=== PATIENT | male | born 1925 | race African-American/Black ===

== ENCOUNTER 2016-04-12 16:27 | Inpatient (IN) | payer OTHER ==
[2016-04-12 17:31] LABS: MANUAL DIFF NEEDED? NO
[2016-04-12 17:36] LABS: BASO% 0.5 % (0.0-0.8); EOS# 0.33 X1000 (0.0-0.7); EOS% 5.4 % (0.0-10.0); HEMATOCRIT 37.9 % (42.0-52.0); HEMOGLOBIN 12.4 g/dL (14.0-18.0); LYMPH# 0.73 X1000 (1.2-3.4); LYMPH% 11.9 % (20.5-51.1); MCH 28.6 PG (27-31); MCHC 32.7 g/dL (33-37); MCV 87.5 FL (81-99); MONO# 0.56 X1000 (0.11-0.59); MONO% 9.2 % (1.7-9.3); MPV 9.8 FL (7.4-10.4); PLT 264 X1000 (130-400); RBC 4.33 XMIL (4.7-6.1)
[2016-04-12] MEDS ORDERED: NS 1,000 ML IV ONE (17:42)
[2016-04-12 17:46] LABS: INR 1.06; PROTIME 11.2 Seconds (9.2-11.7); PTT 27.2 Seconds (22.0-36.0)
[2016-04-12 17:56] LABS: ALLEN TEST YES; BE 4.9 mmoll (-3.0-3.0); BLOOD TYPE ARTERIAL; DRAW SITE R RADIAL; METHB 1.4 % (0.0-1.5); PCO2(98.6) 41 mmHg (35-45); PO2(98.6) 67 mmHg (60-100); SAMPLE BLOOD; SAO2 97.1 % (95.0-100.0); THB 11.4 g/dL (11.5-17.4); pH(98.6) 7.46 (7.35-7.45)
[2016-04-12 17:57] LABS: MODALITY ROOM AIR
[2016-04-12 17:58] LABS: ALBUMIN 3.1 g/dL (3.5-5.0); CALCIUM 9.3 mg/dL (8.8-10.2); MAGNESIUM 2.3 mg/dL (1.5-2.7); POTASSIUM 4.1 mmol/L (3.5-5.1); TOTAL BILIRUBIN 0.39 mg/dL (0.20-1.00); TOTAL PROTEIN 8.1 g/dL (6.3-8.3)
[2016-04-12] MEDS ORDERED: ROCEPHIN 1 GM/NS 50 ML IV ONE (19:53)
--- NOTE | 2016-04-12 20:11 | PROVIDER DOCUMENTATION ---
HPI-Respiratory General - General Source: patient - History of Present Illness-Resp Quality of Pain: reports: aching, dull Severity in ED: reports: severe Onset/Duration: reports: 4 days ago Timing: reports: still present Cough Quality/Degree: reports: moderate, productive cough, sputum Episode Frequency: frequent episodes Associated Symptoms: reports: chest pain/soreness, cough, shortness of breath, short of breath. denies: dizziness, fever/chills, heart racing, hurts to breathe, hyperventilating, lightheadedness, muscle/bodyaches, nasal congestion, sinus pain, sore throat, sweaty, wheezing <Michael Latham - Last Filed: 04/12/16 20:06> <Ty Mark - Last Filed: 04/12/16 20:20> - General Chief Complaint: Shortness of Breath Stated Complaint: SOB Time Seen by Provider: 04/12/16 16:37 Allergies/Adverse Reactions: Patient Allergies Allergy/AdvReac Type Severity Reaction Status Date / Time No Known Allergies Allergy Verified 04/12/16 17:02 Home Medications: Home Medication List Medication Instructions Recorded Confirmed Last Taken Type Albuterol 2.5MG/Ipratrop 0.5MG 3 ml INH [id number] 04/12/16 04/12/16 04/12/16 History [Duoneb] Cefuroxime Axetil [Cefuroxime] 250 mg PO BID 04/12/16 04/12/16 04/12/16 History Donepezil [Aricept] 5 mg PO QAM 04/12/16 04/12/16 04/12/16 History Quetiapine Fumarate 25 mg PO QHS 04/12/16 04/12/16 1 Day Ago History - History of Present Illness-Resp Nature of Presenting Problem: Pt is a 89 yom who presents to ER with CC of sob and a cough x4 days. 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 Pt's reports that today he looked at her, looked/ felt funny, and then collapsed and quit breathing. 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 (Michael Latham) Review of Systems - Adult - REVIEW OF SYSTEMS - ADULT Constitutional: denies: chills, fever, fatique, night sweats Eyes: reports: no symptoms reported Ears, Nose, Mouth & Throat: reports: no symptoms reported Cardiovascular: reports: chest pain, syncope. denies: edema, heart murmur, irregular heart rate, orthopnea, palpitations, poor circulation, PND Respiratory: reports: cough, excessive sputum production, shortness of breath. denies: chronic cough, dyspnea on exertion, hemoptysis, pleurisy, wheezing Gastrointestinal: reports: no symptoms reported Genitourinary: reports: no symptoms reported Musculoskeletal: reports: no symptoms reported Integumentary: reports: no symptoms reported Neurological: reports: loss of balance, paresthesia (from prior CVA), syncope. denies: ataxia, dizziness/vertigo, headache/migraines, numbness, seizure, slurred speech, tremors Psychiatric: reports: no symptoms reported Endocrine: reports: no symptoms reported Hematologic/Lymphatic: reports: no symptoms reported Allergic/Immunologic: reports: no symptoms reported All Other Systems: Reviewed and Negative <Michael Latham - Last Filed: 04/12/16 20:06> Past History - Adult - PAST MEDICAL HISTORY-ADULT Review of Records: reports: Nursing Assessment Review, Medications Reviewed Cardiovascular: reports: heart valve problem, hyperlipidemia Respiratory: reports: asthma, COPD Neurological: reports: CVA - PRIOR SURGERIES/PROCEDURES Surgical/Procedure History: reports: other (cardiac valve repair x2) - IMMUNIZATION STATUS Childhood Immunizations: See Nurse Assessment Flu Vaccine: See Nurse Assessment <Michael Latham - Last Filed: 04/12/16 20:06> Physical Exam-General - PHYSICAL EXAM-ADULT Initial Vital Signs Reviewed: Yes - CONSTITUTIONAL General Appearance: appears well, alert, moderate distress - RESPIRATORY Respiratory: chest non-tender, lungs clear, rhonchi (generalized). negative: normal breath sounds - CARDIOVASCULAR Cardiovascular: normal peripheral pulses, regular rate, rhythm. negative: bradycardia, tachycardia, irregularly irregular - LYMPHATIC Lymphatic: no adenopathy - NEUROLOGIC Neurologic: grossly normal, no motor/sensory deficits - PSYCHIATRIC Psych/Mental Status: normal mood/affect, normal thought content, normal thought process, oriented x 3 <Michael Latham - Last Filed: 04/12/16 20:06> Progress - XRAY 1 XRAY: Bilateral XRAY Study: Chest Impression: See EMR Report XRAY Interpretation: Negative - CT/MRI 1 CT Study: Head Impression: See EMR Report CT Results: Chronic microvascular changes, nothing acute. <Michael Latham - Last Filed: 04/12/16 20:06> - CONSULTS/PCP/HOSPITALIST Notification #1 *Consult/PCP/Hospitalist*: Hospitalist service Time Discussed: 20:20 Consult Disposition: Admit <Ty Mark - Last Filed: 04/12/16 20:20> - PLAN OF CARE/RESULTS Progress/Plan/Lab Results: Vital Signs - 24 hr 04/12/16 04/12/16 16:50 18:28 Temperature 97.9 F Pulse Rate 95 H 92 H Respiratory 22 20 Rate Blood Pressure 111/56 115/55 O2 Sat by Pulse 100 Oximetry Orders Category Date Time Status Cardiac Monitoring DIRECTED Care 04/12/16 16:38 Active Saline Loc NOW Care 04/12/16 16:38 Active CHEST-2 VIEWS [RAD] Stat Exams 04/12/16 16:38 Taken HEAD W/O CONTRAST [CT] Stat Exams 04/12/16 18:27 Taken LUNG SCAN / VQ [NM] Stat Exams 04/13/16 08:00 Ordered ABG [RESP] Routine Lab 04/12/16 17:47 Completed BLOOD CULTURE [BLDCUL] Stat Lab 04/12/16 17:10 Results CBC WITH ELECTRONIC DIFF [HEME] Stat Lab 04/12/16 17:10 Completed CK PROFILE [SP CHEM] Stat Lab 04/12/16 17:10 Completed CK PROFILE [SP CHEM] Stat Lab 04/12/16 19:11 Completed COMPREHENSIVE METABOLIC PANEL [CHEM] Stat Lab 04/12/16 17:10 Completed D-DIMER [CHEM] Stat Lab 04/12/16 17:10 Completed INFLUENZA SCREEN A/B Stat Lab 04/12/16 18:25 Completed LACTATE, PLASMA [CHEM] Stat Lab 04/12/16 17:10 Completed MAGNESIUM [CHEM] Stat Lab 04/12/16 17:10 Completed PRO B-NATRIURETIC PEPTIDE Stat Lab 04/12/16 17:10 Completed PROTIME WITH INR [COAG] Stat Lab 04/12/16 17:10 Completed PTT [COAG] Stat Lab 04/12/16 17:10 Completed TROPONIN T Stat Lab 04/12/16 17:10 Completed TROPONIN T Stat Lab 04/12/16 19:11 Completed 0.9% Sodium Chloride Inj [Ns] 1,000 ml Med 04/12/16 17:42 Discontinued IV 999 mls/hr CefTRIAXONE 1 GM/NS [Rocephin 1 gm/Ns] 50 ml Med 04/12/16 19:53 Active IV NOW EKG [EKG] Stat Ther 04/12/16 16:38 Ordered EKG [EKG] Stat Ther 04/12/16 18:37 Ordered Laboratory Tests 04/12/16 04/12/16 04/12/16 17:10 17:10 17:10 WBC 6.11 RBC 4.33 L Hgb 12.4 L Hct 37.9 L MCV 87.5 MCH 28.6 MCHC 32.7 L RDW Std Deviation 14.1 Plt Count 264 MPV 9.8 Immature Gran % (Auto) 0.0 Neut % (Auto) 73.0 Lymph % (Auto) 11.9 L Clayton % (Auto) 9.2 Eos % (Auto) 5.4 Baso % (Auto) 0.5 Immature Gran # (Auto) 0.00 Neut # (Auto) 4.46 Lymph # (Auto) 0.73 L Clayton # (Auto) 0.56 Eos # (Auto) 0.33 Baso # (Auto) 0.03 PT INR PTT (Actin FS) D-Dimer 5.18 H Specimen Type Sample Site pH pCO2 pO2 HCO3 Base Excess Oxyhemoglobin ABG O2 Sat (Calculated) ABG O2 Saturation ABG Carboxyhemoglobin ABG Methemoglobin Jay Test A-a O2 Difference Total Hemoglobin Lactate Blood Gas Modality FiO2 % Sodium 138 Potassium 4.1 Chloride 95 L Carbon Dioxide 29 Anion Gap 14 BUN 13 Creatinine 1.5 H Estimated GFR/1.73 m2 53 BUN/Creatinine Ratio 9 Glucose 133 H Calculated Osmolality 278 Calcium 9.3 Magnesium 2.3 Total Bilirubin 0.39 AST 20 ALT 13 Alkaline Phosphatase 55 Creatine Kinase 74 Troponin T Lju-V-Ylempqcwbtq Pept Total Protein 8.1 Albumin 3.1 L Globulin 5.0 Albumin/Globulin Ratio 0.6 Plasma Lactate 04/12/16 04/12/16 04/12/16 17:10 17:10 17:10 WBC RBC Hgb Hct MCV MCH MCHC RDW Std Deviation Plt Count MPV Immature Gran % (Auto) Neut % (Auto) Lymph % (Auto) Clayton % (Auto) Eos % (Auto) Baso % (Auto) Immature Gran # (Auto) Neut # (Auto) Lymph # (Auto) Clayton # (Auto) Eos # (Auto) Baso # (Auto) PT 11.2 INR 1.06 PTT (Actin FS) 27.2 D-Dimer Specimen Type Sample Site pH pCO2 pO2 HCO3 Base Excess Oxyhemoglobin ABG O2 Sat (Calculated) ABG O2 Saturation ABG Carboxyhemoglobin ABG Methemoglobin Jay Test A-a O2 Difference Total Hemoglobin Lactate Blood Gas Modality FiO2 % Sodium Potassium Chloride Carbon Dioxide Anion Gap BUN Creatinine Estimated GFR/1.73 m2 BUN/Creatinine Ratio Glucose Calculated Osmolality Calcium Magnesium Total Bilirubin AST ALT Alkaline Phosphatase Creatine Kinase Troponin T 0.046 Mxx-E-Mxpasytvzpo Pept 1704 H Total Protein Albumin Globulin Albumin/Globulin Ratio Plasma Lactate 04/12/16 04/12/16 04/12/16 17:10 17:47 19:11 WBC RBC Hgb Hct MCV MCH MCHC RDW Std Deviation Plt Count MPV Immature Gran % (Auto) Neut % (Auto) Lymph % (Auto) Clayton % (Auto) Eos % (Auto) Baso % (Auto) Immature Gran # (Auto) Neut # (Auto) Lymph # (Auto) Clayton # (Auto) Eos # (Auto) Baso # (Auto) PT INR PTT (Actin FS) D-Dimer Specimen Type ARTERIAL Sample Site R RADIAL pH 7.46 H pCO2 41 pO2 67 HCO3 28.7 H Base Excess 4.9 H Oxyhemoglobin 93.4 L ABG O2 Sat (Calculated) 15.0 ABG O2 Saturation 97.1 ABG Carboxyhemoglobin 2.50 ABG Methemoglobin 1.4 Jay Test YES A-a O2 Difference 31.0 Total Hemoglobin 11.4 L Lactate 1.60 Blood Gas Modality ROOM AIR FiO2 % 21.0 Sodium Potassium Chloride Carbon Dioxide Anion Gap BUN Creatinine Estimated GFR/1.73 m2 BUN/Creatinine Ratio Glucose Calculated Osmolality Calcium Magnesium Total Bilirubin AST ALT Alkaline Phosphatase Creatine Kinase 74 Troponin T Hhm-A-Hxfixnolnis Pept Total Protein Albumin Globulin Albumin/Globulin Ratio Plasma Lactate 4.1 H 04/12/16 19:11 WBC RBC Hgb Hct MCV MCH MCHC RDW Std Deviation Plt Count MPV Immature Gran % (Auto) Neut % (Auto) Lymph % (Auto) Clayton % (Auto) Eos % (Auto) Baso % (Auto) Immature Gran # (Auto) Neut # (Auto) Lymph # (Auto) Clayton # (Auto) Eos # (Auto) Baso # (Auto) PT INR PTT (Actin FS) D-Dimer Specimen Type Sample Site pH pCO2 pO2 HCO3 Base Excess Oxyhemoglobin ABG O2 Sat (Calculated) ABG O2 Saturation ABG Carboxyhemoglobin ABG Methemoglobin Jay Test A-a O2 Difference Total Hemoglobin Lactate Blood Gas Modality FiO2 % Sodium Potassium Chloride Carbon Dioxide Anion Gap BUN Creatinine Estimated GFR/1.73 m2 BUN/Creatinine Ratio Glucose Calculated Osmolality Calcium Magnesium Total Bilirubin AST ALT Alkaline Phosphatase Creatine Kinase Troponin T 0.034 Uzs-I-Zdptzbmzsji Pept Total Protein Albumin Globulin Albumin/Globulin Ratio Plasma Lactate (Michael Latham) Departure <Michael Latham - Last Filed: 04/12/16 20:06> - Departure Time of Disposition Order: 20:20 Certified Medical Emergency: Emergent <Ty Mark - Last Filed: 04/12/16 20:20> - Departure DIAGNOSIS: Failure of outpatient treatment, Syncope and collapse, New onset a-fib, Elevated d-dimer Disposition: ADMITTED INPATIENT 09 Condition: Stable Attestation - Scribe Verification/Attestation Scribe:: Michael Latham Acting as Scribe for:: Ty Mark Scribe documention review:: This chart was documented by a scribe and accurately reflects the service the provider performed and the decisions made by the provider. <Michael Latham - Last Filed: 04/12/16 20:06> - Physician/ JOSIAH Attestation Patient care was provided by Advanced Practice Provider:: Yes Advanced Practice Provider:: Ty Mark Advanced Practice Provider documentation review:: The Mid-level provider documentation, treatment plan and medical decision making was reviewed by the physician who agrees with all treatment and medical decision making by the MLP. <Ty Mark - Last Filed: 04/12/16 20:20> Physician Attestation
[2016-04-12] MEDS ORDERED: DUONEB (A & A) INH ONE (21:17)
[2016-04-12] MEDS ORDERED: MUCOMYST 20% INH ONE (21:18)
[2016-04-12] MEDS ORDERED: DOXYCYCLINE 100 MG in NS 250 ML IV SCH (21:30)
[2016-04-12] MEDS ORDERED: LOVENOX 1 MG/KG SUBQ ONE (21:37)
[2016-04-12] MEDS ORDERED: HEPARIN SUBQ ONE (21:39)
[2016-04-12 22:02] LABS: HEMOGLOBIN A1C 5.6 % (4.8-6.0)
[2016-04-12] MEDS: CARDIZEM PO SCH (22:55)
[2016-04-13] MEDS ORDERED: NS 1,000 ML IV SCH ×2 (00:28→18:30)
[2016-04-13] MEDS ORDERED: ZOFRAN IV PRN (00:28)
[2016-04-13] MEDS ORDERED: TYLENOL PO PRN (00:28)
--- NOTE | 2016-04-13 02:02 | EKG Report ---
Test Performed on : 04/13/2016 01:51:19 AM Test Reason : rhythm change Blood Pressure : / mmHG Vent. Rate : 103 BPM Atrial Rate : 103 BPM P-R Int : 144 ms QRS Dur : 110 ms QT Int : 368 ms P-R-T Axes : 073 -65 071 degrees QTc Int : 482 ms Sinus tachycardia. with premature supraventricular complexes. Left axis deviation Right bundle branch block Abnormal ECG When compared with ECG of 12-APR-2016 17:31, (Unconfirmed) Sinus rhythm. has replaced Atrial fibrillation. Nonspecific T wave abnormality no longer evident in Inferior leads Nonspecific T wave abnormality, improved in Lateral leads Confirmed by Karson Samayoa MD ([id number]) on 04/14/2016 9:02:07 PM
[2016-04-13] MEDS: CARDIZEM PO SCH ×4 (02:09→20:26)
[2016-04-13] MEDS: DUONEB (A & A) INH SCH ×6 (02:40→20:37)
--- NOTE | 2016-04-13 05:44 | EKG Report ---
Test Performed on : 04/12/2016 5:31:22 PM Test Reason : Chest Pain Blood Pressure : / mmHG Vent. Rate : 096 BPM Atrial Rate : 097 BPM P-R Int : 000 ms QRS Dur : 102 ms QT Int : 384 ms P-R-T Axes : 000 -73 -27 degrees QTc Int : 485 ms Atrial fibrillation. Incomplete right bundle branch block Left anterior fascicular block Nonspecific T wave abnormality Abnormal ECG When compared with ECG of 04-JUN-2015 19:21, Atrial fibrillation. has replaced Sinus rhythm. Nonspecific T wave abnormality now evident in Inferior leads Nonspecific T wave abnormality, worse in Lateral leads Unconfirmed Result
[2016-04-13 05:55] LABS: MANUAL DIFF NEEDED? NO
--- NOTE | 2016-04-13 05:56 | EKG Report ---
Test Performed on : 04/13/2016 05:47:56 AM Test Reason : afib Blood Pressure : / mmHG Vent. Rate : 095 BPM Atrial Rate : 095 BPM P-R Int : 148 ms QRS Dur : 106 ms QT Int : 408 ms P-R-T Axes : 064 -66 041 degrees QTc Int : 512 ms Sinus rhythm. with premature supraventricular complexes. and with occasional premature ventricular co mplexes. Left axis deviation Incomplete right bundle branch block Prolonged QT Abnormal ECG When compared with ECG of 13-APR-2016 01:51, (Unconfirmed) premature ventricular complexes. are now present Confirmed by Karson Samayoa MD ([id number]) on 04/14/2016 9:01:41 PM
[2016-04-13 06:04] LABS: BASO% 0.5 % (0.0-0.8); EOS# 0.43 X1000 (0.0-0.7); EOS% 6.6 % (0.0-10.0); HEMATOCRIT 33.7 % (42.0-52.0); HEMOGLOBIN 10.8 g/dL (14.0-18.0); IMM GRAN# 0.02 X1000 (0.0-0.04); IMM GRAN% 0.3 % (0.0-0.5); LYMPH# 1.27 X1000 (1.2-3.4); LYMPH% 19.6 % (20.5-51.1); MCH 28.1 PG (27-31); MCV 87.8 FL (81-99); MONO% 10.8 % (1.7-9.3); MPV 10.5 FL (7.4-10.4); NEUT% 62.2 % (42.2-75.2); PLT 232 X1000 (130-400); RBC 3.84 XMIL (4.7-6.1)
[2016-04-13 07:54] LABS: AGAP 10; BUN 10 mg/dL (8-22); CALCIUM 9.2 mg/dL (8.8-10.2); CHLORIDE 102 mmol/L (98-107); COSMO 274; POTASSIUM 4.2 mmol/L (3.5-5.1); SODIUM 137 mmol/L (136-145); TCO2 26 mmol/L (25-35)
--- NOTE | 2016-04-13 08:57 | Diag Imaging Result Document ---
PROCEDURE NAME: CHEST-2 VIEWS - 04/12/2016 CHEST, TWO VIEWS: INDICATION: Shortness of breath. COMPARISON: 06/04/2015. FINDINGS: The heart size is within normal limits. There are median sternotomy wires. There is stable eventration of the right hemidiaphragm. There is stable blunting of the left lateral costophrenic angle. There are healed right posterolateral rib fractures. The pulmonary vasculature is not congested. There may be some minimal atelectasis or infiltrate at the left lung base. IMPRESSION: 1. Possible minimal atelectasis or infiltrate at the left lung base. 2. Otherwise, no definite significant change from the prior studies.
[2016-04-13] MEDS: ARICEPT PO SCH (08:59)
[2016-04-13] MEDS: LOVENOX SUBQ SCH (08:59)
--- NOTE | 2016-04-13 09:00 | Diag Imaging Result Document ---
PROCEDURE NAME: HEAD W/O CONTRAST - 04/12/[address] SCAN OF THE BRAIN: INDICATION: Loss of consciousness. Preliminary interpretation was given by the on-call radiologist. FINDINGS: There is marked cerebral atrophy and deep white matter hypodensity consistent with microvascular disease. There is no evidence for acute infarct or hemorrhage. No midline shift or mass effect. The calvarium is intact. The paranasal sinuses and mastoid air cells are clear. IMPRESSION: 1. Marked cerebral atrophy and microvascular disease. 2. No acute intracranial abnormality is appreciated.
--- NOTE | 2016-04-13 09:02 | Diag Imaging Result Document ---
PROCEDURE NAME: CHEST-PORTABLE - 04/13/2016 CHEST, SINGLE VIEW: COMPARISON: 04/12/2016. FINDINGS: The cardiomediastinal silhouette is within normal limits. There are median sternotomy wires. The pulmonary vasculature is not congested. There are old right rib fractures. There is some minimal strandy density at the bases, compatible with atelectasis or infiltrate. IMPRESSION: Minimal bibasilar density, which may represent atelectasis.
[2016-04-13] MEDS: DOXYCYCLINE 100 MG in NS 250 ML IV SCH ×2 (09:30→20:31)
--- NOTE | 2016-04-13 09:43 | HISTORY AND PHYSICAL ---
REQUESTING PHYSICIAN: Kendall Mayers MD, hospitalist. CHIEF COMPLAINT: Shortness of breath. HISTORY OF PRESENT ILLNESS: This is an 89-year-old male with a history of dementia and previous CVA with left-sided paralysis. No family is at the bedside during my interview, however the ER provider apparently spoke to the and stated that she had him come into the ER because he "looked funny" and also "felt funny". He also had a period today where he collapsed and reportedly quit breathing. EMS reports having a difficult time getting the patient to become responsive, but he was responsive prior to arrival. A CT scan in the ER showed chronic microvascular changes, but no acute intracranial process. LABORATORY DATA: Showed a D-dimer of 5.18 and a BUN of 13 with a creatinine of 1.5. The patient appears to have a baseline creatinine of 0.9. At this time a CTA will not be obtained to rule out pulmonary embolism related to the creatinine being elevated. IMAGING: The patient will be admitted to [facility] related to the EKG done in the ER showing apparent new onset atrial fibrillation. PAST MEDICAL HISTORY: Per ER charting shows: 1. Asthma. 2. COPD. 3. Previous CVA with left-sided paralysis. 4. Hyperlipidemia. 5. Coronary artery disease with cardiac valve repair x2. PREVIOUS SURGICAL HISTORY: Cardiac valve repair x2. This was also obtained by ER charting. The patient could not provide any additional surgical interventions. SOCIAL HISTORY: He reportedly lives at home with his . He states that he did smoke years ago, but has since stopped. He uses no alcohol or illicit drugs. FAMILY HISTORY: This could not be obtained related to the patient's mentation. ALLERGIES: No known drug allergies. HOME MEDICATIONS: 1. Cefotaxime 250 mg p.o. b.i.d. 2. DuoNebs 3 mL inhalation 4 times daily. 3. Quetiapine fumarate 25 mg p.o. at bedtime. 4. Aricept 5 mg p.o. q.a.m. REVIEW OF SYSTEMS: Fourteen point review of systems conducted with the patient: He was tearful during the interview. States that he does not feel well, however he could not expand on this. He denied any chest pain, nausea, vomiting, dizziness, shortness of breath, diarrhea. Again the patient is disoriented related to his dementia and previous CVA, so pertinent positives are listed above in the HPI. PHYSICAL EXAMINATION: VITAL SIGNS: Temperature 97.9 degrees, pulse 92, respirations 20, blood pressure 130/80, oxygen saturation 97% on room air. GENERAL: This is a demented 89-year-old, female, in no acute distress lying on the ER stretcher. HEENT: Head is atraumatic, normocephalic. Pupils equal, round, react to light. Extraocular eye movement intact. Sclerae is anicteric. Conjunctivae is pink. Oral mucosa is dry. NECK: Supple. No JVD. No thyromegaly. Trachea is midline. CARDIAC: Irregularly irregular. S1, S2 appreciated. No murmurs, gallops, rubs. Atrial fibrillation on monitor. LUNGS: Rhonchi noted. Bilateral lung whelan clear somewhat with cough. No expiratory wheezes. No rales. Symmetrical rise and fall with respirations. ABDOMEN: Soft, nondistended, nontender. Bowel sounds present in all 4 quadrants. Normoactive. No pulsatile mass. No organomegaly. MUSCULOSKELETAL: Left side is flaccid. Right upper arm has noted contractures. Right upper and lower extremity 4/5 strength with normal range of motion. EXTREMITIES: No clubbing, cyanosis, or edema. Bilateral lower extremities with diminished pedal pulses bilaterally. SKIN: Warm, dry and intact. No acute lesions or rash. GENITOURINARY: No bladder distention. Yusuf catheter will be placed for intake/output. DIAGNOSTIC DATA: CT of the head showed chronic microvascular changes, however no acute intracranial process. Chest x-ray showed chronic COPD changes, but no acute disease. LABORATORY DATA: WBC is 6.11, hemoglobin is 12.4, hematocrit 37.9, platelet count 264. Coagulation within normal limits. D-dimer 5.18. ABG: A pH 7.46, pCO2 41, PO2 61, bicarbonate 28.7. Sodium 138, potassium 4.1, chloride 95, carbon dioxide 29, BUN 13, creatinine 1.5, glucose 133. ProBNP 1704, plasma lactate is 4.1. ASSESSMENT AND PLAN: 1. New onset atrial fibrillation. The patient at this time is rate controlled in the upper 90s. Will start on Cardizem 30 mg p.o. q. 6 hours and increase as needed. Echocardiogram in morning. The patient was given a 1 time dose of anticoagulant, but related to elevated D- dimer. Ventilation perfusion scan will be obtained in the morning. 2. Acute kidney injury. Normal saline bolus was given in the emergency room. We will continue gentle fluid hydration at 75 mL an hour of normal saline. 3. Elevated D-dimer. Rule out pulmonary embolism. We will give Lovenox 1 mg/kg and order ventilation perfusion scan for morning. 4. Chronic dementia, aware. Continue patient's Aricept, Seroquel. 5. History of cerebrovascular accident with left-sided paralysis, aware. 6. Bronchitis with failed outpatient treatment. We will start on doxycycline 100 mg intravenous every 12 hours. Will give a 1 time DuoNeb and Mucomyst 20% inhalation in the emergency room, and then continue with DuoNebs every 6 hours. Blood cultures are pending. 7. Hyperglycemia. The patient does not carry a diagnosis of diabetes mellitus, however his blood glucose was elevated. We will check hemoglobin A1c. Further recommendations per patient clinical course. Dictated by ALEXANDR Connell for Kendall Mayers MD
--- NOTE | 2016-04-13 13:20 | Diag Imaging Result Document ---
PROCEDURE NAME: LUNG SCAN / VQ - 04/13/2016 VENTILATION-PERFUSION LUNG SCAN: FINDINGS: The patient was administered 39.6 millicuries of technetium-99m DTPA aerosol for the ventilation portion of the study and 5.6 millicuries of technetium 99m MAA intravenously for the perfusion portion of the study. There is no evidence of ventilation-perfusion mismatch. No absolute segmental perfusion defects are present. IMPRESSION: Low probability for pulmonary embolus.
--- NOTE | 2016-04-13 19:03 | PROGRESS NOTE ---
DATE: 04/13/2016 SUBJECTIVE: The patient has no complaints. He does have episodes of confusion and agitation where he yells out to the staff. He appears in no distress. OBJECTIVE: Vital Signs: Blood pressure is 141/77 with a heart rate of 83, respirations are 21, temperature is 97.8 degrees, with oxygen saturations of 94 to 95% on 2 L nasal cannula. Cardiovascular: Irregularly irregular rate and rhythm. S1 and S2 appreciated. Atrial fibrillation is noted. Pulmonary: He has some rhonchi that somewhat clear to cough with no increased work of breathing noted. Symmetrical rise and fall with respirations. Gastrointestinal: Abdomen is soft, nontender, nondistended. Bowel sounds in all 4 quadrants. Musculoskeletal: Left side is flaccid. Right upper arm has contractures. Extremities: No clubbing, cyanosis, or edema. Palpable pulses x4. ASSESSMENT AND PLAN: 1. New onset atrial fibrillation. The patient will continue on telemetry. We will continue his Cardizem at 30 mg q.6 hours. Echocardiogram was attempted although it could not be obtained due to the patient's anatomy and contractures of his arm which is rigid and stuck in the apical windows. Therefore, pictures were unable to be taken. We will discuss with cardiology. V/Q lung scan revealed low probability for pulmonary embolus. 2. Acute kidney injury. Creatinine was 1.5 on admission. It has decreased to 1.3. We will continue to gently hydrate and trend labs. We will renal dose any medications. 3. Elevated D-dimer. As stated above V/Q lung scan was negative for pulmonary embolism. Therefore, we will use no further anticoagulation. 4. Chronic dementia. We will continue his home medications. 5. History of cerebrovascular accident with left-sided paralysis. Noted. 6. Bronchitis with failed outpatient treatment. We will continue with antibiotics, DuoNeb. Blood cultures are pending. 7. Hyperglycemia. The patient's A1c was 5.6. We will trend. Dictated by ALEXANDR Bustillos for Joaquin Juares MD
[2016-04-13] MEDS: SEROQUEL PO SCH (20:26)
[2016-04-14] MEDS: CARDIZEM PO SCH ×5 (02:20→21:57)
[2016-04-14] MEDS: DUONEB (A & A) INH SCH ×3 (03:22→15:04)
[2016-04-14 05:48] LABS: HEMATOCRIT 33.8 % (42.0-52.0); HEMOGLOBIN 10.7 g/dL (14.0-18.0); MCH 27.9 PG (27-31); MCHC 31.7 g/dL (33-37); MCV 88.3 FL (81-99); RBC 3.83 XMIL (4.7-6.1)
[2016-04-14 06:12] LABS: AGAP 9; ALBUMIN 2.9 g/dL (3.5-5.0); ALKALINE PHOSPHATASE 49 U/L (32-122); BUN 7 mg/dL (8-22); CALCIUM 8.7 mg/dL (8.8-10.2); CHLORIDE 105 mmol/L (98-107); COSMO 273; GOT 16 U/L (10-34); GPT 9 U/L (10-44); POTASSIUM 3.3 mmol/L (3.5-5.1); SODIUM 138 mmol/L (136-145); TCO2 25 mmol/L (25-35); TOTAL PROTEIN 6.6 g/dL (6.3-8.3)
--- NOTE | 2016-04-14 07:03 | Extremity Venous Study ---
PROCEDURE NAME: Venous U/S Bilateral Legs - 04/13/2016 BILATERAL VENOUS FLOW EVALUATION: INDICATION: Elevated D-dimer. FINDINGS: The deep veins of the lower extremities bilaterally demonstrate appropriate compressibility and augmentation. No intraluminal thrombus is visualized. There is no evidence for DVT. Superficial veins are patent. IMPRESSION: No evidence for deep venous thrombosis bilateral lower extremities.
[2016-04-14] MEDS: NS 1,000 ML IV SCH ×2 (07:52→21:56)
[2016-04-14] MEDS: LOVENOX SUBQ SCH (10:17)
[2016-04-14] MEDS: ARICEPT PO SCH ×2 (10:18→13:22)
[2016-04-14] MEDS: KLOR-CON PO ONE ×2 (10:18→10:39)
[2016-04-14] MEDS: DOXYCYCLINE PO SCH ×2 (10:40→21:57)
--- NOTE | 2016-04-14 10:40 | PROGRESS NOTE ---
DATE: 04/14/2016 SUBJECTIVE: Patient without any new complaints today. He is nonverbal. No family. OBJECTIVE: Vital Signs: On physical, temp 98.0 degrees, pulse 73, respiratory 18, BP 147/61, sat 97% on 2 L. General: Patient is a frail-appearing elderly male, who is currently in no real respiratory distress. CV: Regular rhythm, rate controlled. Chest: Positive rhonchi. No wheezing, otherwise clear. Abdomen: Soft. Extremities: No edema. He has decreased pulses bilaterally in his lower extremities. He is frail with some contractures noted to his left upper extremity. IMAGING: Lower extremity Doppler negative for DVT. ASSESSMENT: 1. Atrial fibrillation with rapid ventricular response, currently rate controlled on oral Cardizem. 2. Anemia of chronic disease, stable. 3. Hypokalemia. Will replace. 4. Acute kidney injury. Creatinine was 1.5, currently 0.9; this has resolved. 5. Chronic dementia. Continue Aricept, Seroquel. 6. History of cerebrovascular accident with left-sided paralysis. 7. Moderate protein calorie malnutrition. PLAN: We will continue patient on doxycycline. Will saline lock. Will get physical therapy involved. Certainly may need rehab upon discharge. We will replace his potassium. Further orders as needed.
[2016-04-14] MEDS: SEROQUEL PO SCH (21:57)
[2016-04-15] MEDS: CARDIZEM PO SCH ×4 (04:14→20:12)
[2016-04-15] MEDS: DUONEB (A & A) INH SCH ×4 (04:28→22:45)
[2016-04-15 07:01] LABS: HEMATOCRIT 36.4 % (42.0-52.0); HEMOGLOBIN 11.6 g/dL (14.0-18.0); MCH 28.1 PG (27-31); MCHC 31.9 g/dL (33-37); MCV 88.1 FL (81-99); MPV 9.9 FL (7.4-10.4); RBC 4.13 XMIL (4.7-6.1)
[2016-04-15 07:24] LABS: AGAP 13; ALBUMIN 3.4 g/dL (3.5-5.0); ALKALINE PHOSPHATASE 54 U/L (32-122); BUN 8 mg/dL (8-22); CALCIUM 9.3 mg/dL (8.8-10.2); CHLORIDE 102 mmol/L (98-107); COSMO 276; GOT 18 U/L (10-34); GPT 10 U/L (10-44); POTASSIUM 3.6 mmol/L (3.5-5.1); SODIUM 140 mmol/L (136-145); TCO2 25 mmol/L (25-35); TOTAL PROTEIN 7.4 g/dL (6.3-8.3)
[2016-04-15] MEDS: LOVENOX SUBQ SCH (07:48)
--- NOTE | 2016-04-15 09:07 | PROGRESS NOTE ---
DATE: 04/15/2016 SUBJECTIVE: The patient is nonverbal. No changes. No family is noted. The staff denies any current concerns. OBJECTIVE: Vital Signs: Temperature 97.0 degrees, pulse 87, respiratory 18, BP 150/67 to 170/70, satting 95% on 2 L. General: Patient is a frail-appearing, male with notable muscle contractures in his left upper extremity. He does not follow commands. Does not answer questions. Does not verbalize complaints. HEENT: Normocephalic. Neck: Supple. CV: Regular rate. Chest: Relatively clear. Positive upper airway noise. Faint occasional wheezing this a.m. Abdomen: Soft. Extremities: Notable for muscle contractures in his left upper extremity. LABS: CBC normal. CMP pending. ASSESSMENT: 1. Hypokalemia. 2. New onset atrial fibrillation, appears rate controlled. 3. Hypocalcemia. 4. Moderate protein calorie malnutrition. 5. Acute kidney injury, appears resolved on yesterday's lab. 6. Elevated D-dimer, likely chronic. Negative ventilation perfusion scan. Negative lower extremity ultrasound. 7. Bronchitis. Continues to improve slowly. PLAN: We will begin looking for disposition planning with Mr. Pitt. Will saline lock. He is not eating or drinking to any degree. We will attempt to discuss with the family DNR, comfort care. We will decrease his Lovenox to prophylactic dose as it does not appear as though he has had a DVT. Further orders as needed.
[2016-04-15] MEDS: ARICEPT PO SCH (09:12)
[2016-04-15] MEDS: DOXYCYCLINE PO SCH ×2 (09:12→20:12)
[2016-04-15] MEDS ORDERED: DUONEB (A & A) INH PRN (15:00)
[2016-04-15] MEDS: SEROQUEL PO SCH (20:13)
[2016-04-16] MEDS: CARDIZEM PO SCH ×4 (02:03→20:40)
[2016-04-16] MEDS: DUONEB (A & A) INH SCH ×6 (02:39→23:01)
[2016-04-16] MEDS: LOVENOX SUBQ SCH (06:47)
--- NOTE | 2016-04-16 08:28 | PROGRESS NOTE ---
DATE: 04/16/2016 SUBJECTIVE: Patient without complaints. He does not answer questions or follow commands. However, he was noted to talk to his family when they arrived yesterday. PHYSICAL: Vital Signs: Temperature 97, pulse 95, respiratory 18, BP 128/49. General: Patient is a well developed, frail-appearing male who is currently in no respiratory distress. HEENT: Normocephalic. Neck: Supple. CV: Regular rate. Chest: Relatively clear. Positive rhonchi. Abdomen: Soft. Extremities: No edema. He is noted to have contractures of the left upper extremity. DIAGNOSTIC DATA: Labs pending. Chest x-ray pending. ASSESSMENT: 1. New onset atrial fibrillation. Currently rate controlled. 2. Acute kidney injury. Creatinine is resolved, currently back to 0.8. 3. Hypokalemia, resolved. 4. Moderate protein calorie malnutrition. 5. Hypocalcemia. 6. Acute bronchitis. PLAN: Hopefully can discharge home in the next day or 2. We will ask Instructional Design Manager to assist in discharge planning.
[2016-04-16] MEDS: ARICEPT PO SCH (08:55)
[2016-04-16] MEDS: DOXYCYCLINE PO SCH ×2 (08:55→20:40)
[2016-04-16] MEDS: SEROQUEL PO SCH ×2 (20:40→23:04)
[2016-04-17] MEDS: DUONEB (A & A) INH SCH ×6 (02:54→23:13)
[2016-04-17] MEDS: CARDIZEM PO SCH ×4 (03:43→20:23)
[2016-04-17] MEDS: LOVENOX SUBQ SCH (06:23)
[2016-04-17] MEDS: PRINIVIL PO SCH (08:20)
[2016-04-17] MEDS: ARICEPT PO SCH (08:20)
[2016-04-17] MEDS: DOXYCYCLINE PO SCH ×2 (08:20→20:23)
--- NOTE | 2016-04-17 09:48 | PROGRESS NOTE ---
DATE: 04/17/2016 SUBJECTIVE: The patient is without new complaints. No family member is around. OBJECTIVE: Vital Signs: On physical, temp 97.0 degrees, pulse 84, respiratory rate 18 and BP 164/84. General: Patient is well developed, well nourished. Currently in no respiratory distress. HEENT: Normocephalic. Neck: Supple. CV: Regular rate. Chest: Clear. Abdomen: Soft. Extremities: He was noted to have muscle contractures left upper extremity. ASSESSMENT: 1. Hypertension. Blood pressure remains elevated. We will add lisinopril 5 mg. 2. Atrial fibrillation, stable. Continue Cardizem 30 mg every 6 hours. 3. Acute bronchitis. Will continue doxycycline and albuterol. 4. Dementia. Continue Aricept. 5. History of cerebrovascular accident with left-sided paralysis. PLAN: Overall patient has improved and can be discharged home when services are available at home. Certainly would prefer him to go to rehab, but that does not appear to be an option per the family. Will continue to follow. Hopefully, home in the next 2-3 days.
[2016-04-17] MEDS: SEROQUEL PO SCH (20:24)
[2016-04-18] MEDS: CARDIZEM PO SCH ×4 (02:34→20:31)
[2016-04-18] MEDS: DUONEB (A & A) INH SCH ×6 (03:19→23:10)
[2016-04-18] MEDS: LOVENOX SUBQ SCH (06:20)
[2016-04-18] MEDS: ARICEPT PO SCH (08:58)
[2016-04-18] MEDS: DOXYCYCLINE PO SCH ×2 (08:58→20:31)
[2016-04-18] MEDS: PRINIVIL PO SCH (08:58)
--- NOTE | 2016-04-18 11:47 | PROGRESS NOTE ---
DATE: 04/18/2016 SUBJECTIVE: Patient without new complaints. No family is in the room. OBJECTIVE: Vital Signs: Reviewed. Temperature 97.4 degrees, pulse 94, respiratory 18, BP 106/48. General: Patient is a well-developed, elderly male who is in no current respiratory distress. He is awake. CV: Regular rate. Chest: Relatively clear. Positive rhonchi throughout. Abdomen: Soft. Extremities: Notable contractures left upper extremity. ASSESSMENT: 1. Hypertension. 2. Atrial fibrillation, stable. 3. Acute bronchitis. 4. Chronic dementia. 5. History of cerebrovascular accident with left-sided paralysis. PLAN: Overall patient is better. He is currently on oral medications. We will discuss with vp digital marketing social media and crm for discharge planning. His blood pressure was elevated for the past few days. We started him on 5 mg of lisinopril and blood pressures appear to be better.
[2016-04-18] MEDS: SEROQUEL PO SCH (20:31)
[2016-04-19] MEDS: CARDIZEM PO SCH ×3 (02:44→16:13)
[2016-04-19] MEDS: DUONEB (A & A) INH SCH ×4 (03:13→15:49)
[2016-04-19] MEDS: LOVENOX SUBQ SCH (06:10)
[2016-04-19 07:21] LABS: HEMATOCRIT 38.3 % (42.0-52.0); HEMOGLOBIN 11.9 g/dL (14.0-18.0); MCH 28.1 PG (27-31); MCHC 31.1 g/dL (33-37); MCV 90.5 FL (81-99); MPV 9.7 FL (7.4-10.4); RBC 4.23 XMIL (4.7-6.1)
[2016-04-19 07:34] LABS: AGAP 7; ALBUMIN 3.4 g/dL (3.5-5.0); ALKALINE PHOSPHATASE 47 U/L (32-122); BUN 17 mg/dL (8-22); CALCIUM 9.8 mg/dL (8.8-10.2); CHLORIDE 100 mmol/L (98-107); COSMO 278; GOT 38 U/L (10-34); GPT 26 U/L (10-44); POTASSIUM 4.1 mmol/L (3.5-5.1); SODIUM 138 mmol/L (136-145); TCO2 31 mmol/L (25-35); TOTAL PROTEIN 7.7 g/dL (6.3-8.3)
--- NOTE | 2016-04-19 07:45 | PROGRESS NOTE ---
DATE: 04/19/2016 SUBJECTIVE: Patient without any new complaints. PHYSICAL EXAMINATION: Vital Signs: Reviewed. Temperature 97 degrees, pulse 92, respiratory rate 18, BP 114/59, saturation 95% on 2 L. General: Patient well developed, frail-appearing male who is currently in no respiratory distress. Appears in stable home condition. Neck: Neck supple. CV: Regular rate. Chest: Relatively clear. Positive rhonchi. Abdomen: Soft. Extremities: Moves all extremities. Neurologic: No changes. ASSESSMENT: 1. Hypertension better with the addition of lisinopril 5 mg. 2. Anemia of chronic disease, stable. 3. Hypokalemia resolved. 4. New onset atrial fibrillation, stable on Cardizem 30 q.6. 5. Chronic dementia. 6. History of cerebrovascular accident. 7. Bronchitis improved. PLAN: Hopefully patient will discharge home later this afternoon. The family has been recalcitrant to him going to rehab. Will ask social insurance specialist for assistance on DC planning.
[2016-04-19] MEDS: ARICEPT PO SCH (08:50)
[2016-04-19] MEDS: PRINIVIL PO SCH (08:50)
[2016-04-19] MEDS: DOXYCYCLINE PO SCH (08:50)
--- NOTE | 2016-04-19 15:29 | DISCHARGE SUMMARY ---
ADMISSION DATE: 04/12/2016 DISCHARGE DATE: 04/19/2016 ADMISSION DIAGNOSES: 1. New onset atrial fibrillation. 2. Acute kidney injury. 3. Elevated D-dimer. 4. Chronic dementia. 5. History of cerebrovascular accident with left-sided paralysis. 6. Bronchitis with failed outpatient treatment. 7. Hyperglycemia. DISCHARGE DIAGNOSES: 1. New onset atrial fibrillation. Currently rate controlled. 2. Hypertension. 3. Bronchitis with failed outpatient treatment, improved. 4. Chronic dementia. 5. History of cerebrovascular accident. 6. Anemia of chronic disease. SUMMARY OF FINDINGS: This is an 89-year-old male who presented to the ER via EMS after having a difficult time being responsive at home. The stated that he "looked funny and felt funny". CT scan showed chronic microvascular changes, but no acute intracranial process. He had a D-dimer of 5.18 with a BUN of 13 and a creatinine of 1.5. His baseline creatinine was 0.9. While in the ER, his EKG showed an apparent new onset atrial fibrillation at 96. V/Q scan on 04/13/2016 showed low probability for pulmonary emboli. Extremity venous study showed no evidence of a DVT in the bilateral lower extremities. He was placed on IV antibiotics, Lovenox 30 mg subcutaneous q.24 for DVT prophylaxis, DuoNeb q.4 hours and q.2 p.r.n. He has remained afebrile for greater than 24 hours. He was noted to have an elevation in his blood pressure of 176/89. He was started on lisinopril 5 mg p.o. daily. Blood pressures have improved. Today he is 110/72. So it is felt that he can safely be discharged to rehab today. DISCHARGE MEDICATIONS: He will be on Cardizem CD 120 mg p.o. daily, doxycycline 100 mg p.o. b.i.d. for 7 days, lisinopril 5 mg p.o. daily, DuoNebs 4 times a day for 7 days, Aricept 5 mg p.o. q.a.m., and quetiapine 25 mg p.o. at bedtime, aspirin 81 mg p.o. daily. FOLLOWUP: He will follow back up with his primary care physician once discharged from rehab. TIME SPENT: 35 minutes. Dictated by ALEXANDR Pepper for Joaquin Juares MD
[2016-04-19 15:57] VITALS: BP 129/89
== END 2016-04-19 17:41 | DRG 191 ==
LOC: ED 16:27 → P.ICU 22:27 → P.MEDSURG 04-14 06:14
PROVIDERS: ATTEND Family Medicine
DX: J44.0 Chronic obstructive pulmonary disease with (acute) lower respiratory infection (principal); N17.9 Acute kidney failure, unspecified; E44.0 Moderate protein-calorie malnutrition; I69.954 Hemiplegia and hemiparesis following unspecified cerebrovascular disease affecting left non-dominant side; Z68.1 Body mass index [BMI] 19.9 or less, adult; I48.91 Unspecified atrial fibrillation; E83.51 Hypocalcemia; F03.90 Unspecified dementia, unspecified severity, without behavioral disturbance, psychotic disturbance, mood disturbance, and anxiety; D63.8 Anemia in other chronic diseases classified elsewhere; J20.9 Acute bronchitis, unspecified; E87.6 Hypokalemia; J45.909 Unspecified asthma, uncomplicated; I25.10 Atherosclerotic heart disease of native coronary artery without angina pectoris; R73.9 Hyperglycemia, unspecified; E78.5 Hyperlipidemia, unspecified; Z79.899 Other long term (current) drug therapy; Z87.891 Personal history of nicotine dependence
CPT/HCPCS: 36415; 51702; 70450; 71010; 71020; 78582; 80048; 80053; 82550; 82805; 83036; 83605; 83735; 83880; 84443; 84484; 85025; 85027; 85379; 85610; 85730; 87040; 87804; 93005; 93970; 94640; 94667; 94761; 96374; A9539; A9540; J0696; J1650; J7030; J7050

== ENCOUNTER 2016-05-12 15:00 | Emergency (ER) | payer OTHER ==
--- NOTE | 2016-05-12 15:17 | PROVIDER DOCUMENTATION ---
HPI-Respiratory General - General Stated Complaint: RESP DISTRESS Time Seen by Provider: 05/12/16 15:10 Source: patient, EMS Allergies/Adverse Reactions: Patient Allergies Allergy/AdvReac Type Severity Reaction Status Date / Time No Known Allergies Allergy Verified 05/12/16 15:14 Home Medications: Home Medication List Medication Instructions Recorded Confirmed Last Taken Type Albuterol 2.5MG/Ipratrop 0.5MG 3 ml INH [id number] 04/12/16 05/12/16 05/12/16 History [Duoneb (A & A)] Diltiazem HCl [Diltiazem ER] 120 mg PO DAILY 05/12/16 05/12/16 05/12/16 History Donepezil [Aricept] 5 mg PO QAM 05/12/16 05/12/16 05/12/16 History Doxycycline 100 mg PO BID #20 capsule 05/12/16 Unknown Rx Lisinopril 5 mg PO DAILY 05/12/16 05/12/16 05/12/16 History Methylprednisolone [Medrol Dosepak] 4 mg PO DIRECTED #1 package 05/12/16 Unknown Rx Quetiapine [Seroquel] 25 mg PO HS 05/12/16 05/12/16 05/12/16 History - History of Present Illness-Resp Nature of Presenting Problem: Pt is an 89 yom who came to the ED with a cc of respiratory distress. Pt reports he has been sick for the past month at a rehab facility for COPD. Pt got home a few days ago and is on oxygen at home at night. Pt is required to do breathing treatments every four hours but reports he hasn't done any today. Pt is in mild distress and SOB. Quality of Pain: reports: none Severity in ED: reports: mild Onset/Duration: reports: just prior to arrival Timing: reports: still present Current Respiratory Medication Therapy: Initiated see nurses note Associated Symptoms: reports: shortness of breath, wheezing Similar Symptoms Previously?: No Recently seen or treated by another doctor?: No Review of Systems - Adult - REVIEW OF SYSTEMS - ADULT Constitutional: denies: chills, fever Eyes: reports: no symptoms reported Ears, Nose, Mouth & Throat: denies: sinus problem, mouth/dental pain Cardiovascular: reports: no symptoms reported Respiratory: reports: shortness of breath, wheezing. denies: cough, hemoptysis Gastrointestinal: denies: abdominal pain, diarrhea, nausea, vomiting Genitourinary: reports: no symptoms reported Musculoskeletal: reports: no symptoms reported Integumentary: reports: no symptoms reported Neurological: reports: no symptoms reported Psychiatric: reports: no symptoms reported Endocrine: reports: no symptoms reported Hematologic/Lymphatic: reports: no symptoms reported Allergic/Immunologic: reports: no symptoms reported All Other Systems: Reviewed and Negative Past History - Adult - PAST MEDICAL HISTORY-ADULT Review of Records: reports: Old Records Reviewed, Nursing Assessment Review Major Childhood Illnesses: reports: denies history Cardiovascular: reports: heart valve problem, hyperlipidemia Respiratory: reports: asthma, COPD Gastrointestinal: reports: denies history Obstetrical/Gynecological: reports: denies history Genitourinary: reports: denies history Musculoskeletal: reports: denies history Neurological: reports: CVA, dementia Endocrine/Immune: reports: denies history Other Conditions: reports: denies history - PRIOR SURGERIES/PROCEDURES Surgical/Procedure History: reports: other (cardiac valve repair x2) - IMMUNIZATION STATUS Childhood Immunizations: See Nurse Assessment Flu Vaccine: See Nurse Assessment - FAMILY HISTORY Family History: reviewed, not pertinent Physical Exam-General - PHYSICAL EXAM-ADULT Initial Vital Signs Reviewed: Yes - CONSTITUTIONAL General Appearance: mild distress, thin, other (ill apearance) - EYES Eyes: PERRL/EOMI, pink conjunctivae - HEAD, EARS, NOSE, MOUTH & THROAT HENMT: normocephalic/atraumatic, moist mucous membranes - NECK Neck: non-tender - RESPIRATORY Respiratory: decreased breath sounds, rales, wheezing - CARDIOVASCULAR Cardiovascular: tachycardia - GASTROINTESTINAL (ABDOMEN) Abdominal Exam: normal bowel sounds - MUSCULOSKELETAL Back Exam: normal inspection Extremity: no pedal edema, other (LUE contracted; paralyzed on left side of body ) - SKIN Integumentary: normal color - NEUROLOGIC Neurologic: grossly normal - PSYCHIATRIC Psych/Mental Status: normal mood/affect, normal thought content, normal thought process, oriented x 3 Progress - PLAN OF CARE/RESULTS Progress/Plan/Lab Results: Vital Signs - 24 hr 05/12/16 15:08 Pulse Rate 75 Respiratory 19 Rate Blood Pressure 142/53 O2 Sat by Pulse 92 L Oximetry Orders Category Date Time Status EKG [EKG] Stat Ther 05/12/16 15:03 Ordered Laboratory Tests 05/12/16 05/12/16 05/12/16 16:07 16:07 16:07 WBC 6.77 RBC 4.30 L Hgb 12.1 L Hct 38.1 L MCV 88.6 MCH 28.1 MCHC 31.8 L RDW Std Deviation 14.5 Plt Count 252 MPV 9.6 Neut % (Auto) 69.8 Lymph % (Auto) 15.4 L [place] % (Auto) 6.4 Eos % (Auto) 8.1 Baso % (Auto) 0.3 Neut # (Auto) 4.73 Lymph # (Auto) 1.04 L [place] # (Auto) 0.43 Eos # (Auto) 0.55 Baso # (Auto) 0.02 Specimen Type Sample Site pH pCO2 pO2 HCO3 Base Excess Oxyhemoglobin ABG O2 Sat (Calculated) ABG O2 Saturation ABG Carboxyhemoglobin ABG Methemoglobin Jay Test A-a O2 Difference Total Hemoglobin Lactate Blood Gas Modality FiO2 % Sodium 135 L Potassium 3.8 Chloride 98 Carbon Dioxide 28 Anion Gap 9 BUN 14 Creatinine 1.0 Estimated GFR/1.73 m2 > 60 BUN/Creatinine Ratio 14 Glucose 118 H Calculated Osmolality 272 Calcium 8.9 Total Bilirubin 0.60 AST 14 ALT 12 Alkaline Phosphatase 65 [id number] Pept 183 Total Protein 7.6 Albumin 3.4 L Globulin 4.2 Albumin/Globulin Ratio 0.8 05/12/16 16:45 WBC RBC Hgb Hct MCV MCH MCHC RDW Std Deviation Plt Count MPV Neut % (Auto) Lymph % (Auto) [place] % (Auto) Eos % (Auto) Baso % (Auto) Neut # (Auto) Lymph # (Auto) [place] # (Auto) Eos # (Auto) Baso # (Auto) Specimen Type ARTERIAL Sample Site R RADIAL pH 7.44 pCO2 39 pO2 71 HCO3 26.6 H Base Excess 2.2 Oxyhemoglobin 94.0 L ABG O2 Sat (Calculated) 15.2 ABG O2 Saturation 97.5 ABG Carboxyhemoglobin 1.80 ABG Methemoglobin 1.8 H Jay Test YES A-a O2 Difference 30.0 Total Hemoglobin 11.5 Lactate 1.40 Blood Gas Modality ROOM AIR FiO2 % 21.0 Sodium Potassium Chloride Carbon Dioxide Anion Gap BUN Creatinine Estimated GFR/1.73 m2 BUN/Creatinine Ratio Glucose Calculated Osmolality Calcium Total Bilirubin AST ALT Alkaline Phosphatase [id number] Pept Total Protein Albumin Globulin Albumin/Globulin Ratio - REASSESSMENT Reassessment #1 Time Reassessed: 17:47 (Pt sat is now 100% without oxygen. The is aware of the x-ray findings. The admitted to not having the money to get his medication. ) Status: improving - EKG 1 Time of EKG reading by physician:: 15:11 EKG Read and Signed by:: Abdifatah Clarke EKG Interpretation (*Must complete 3 of following elements*): Abnormal Rate: 69 (incomplete right bundle branch block; left anterior fascicular block; nonspecific ST and T wave abnormality) Rhythm: NSR - XRAY 1 XRAY Study: Chest (mild blunting of the left hemidiaphragm which has been seen on previous studies. no new consolidation identified.) XRAY Interpretation: s - CONSULTS/PCP/HOSPITALIST Notification #1 *Consult/PCP/Hospitalist*: Dr. Ambriz Time Discussed: 17:50 (aware of case and lab and xray, dr clarke recomended for pt to be discharged home. Dr. Clarke went and talk to the pt and is ready to be discharged. ) Departure - Departure Time of Disposition Order: 17:46 DIAGNOSIS: Non compliance w medication regimen COPD (chronic obstructive pulmonary disease) Qualifiers: COPD type: unspecified COPD Qualified Code(s): J44.9 - Chronic obstructive pulmonary disease, unspecified Disposition: HOME 01 Certified Medical Emergency: Emergent Condition: Stable Additional Instructions: ED Follow Up Instructions: You have been treated by a care provider in the Emergency Department. These instructions are being provided to you so you can have an understanding of how to care for yourself upon discharge. Upon discharge from the Emergency Department, you are responsible for making arrangements for follow-up care by a physician of your choice. Take all prescribed medications as directed. Return to the Emergency Department immediately for any new or worsening symptoms. You may call the Physician Referral phone number at [phone] to obtain a list of Physicians who are taking new patients. Prescriptions: Doxycycline 100 mg PO BID #20 capsule Methylprednisolone [Medrol Dosepak] 4 mg PO DIRECTED #1 package Referrals: Sahil Blancas MD [Primary Care Provider] - Attestation - Scribe Verification/Attestation Scribe:: Katina Palma Acting as Scribe for:: Abdifatah Clarke Scribe documention review:: This chart was documented by a scribe and accurately reflects the service the provider performed and the decisions made by the provider.
[2016-05-12] MEDS ORDERED: SOLU-MEDROL IV ONE (15:21)
[2016-05-12] MEDS ORDERED: DUONEB (A & A) INH ONE (15:21)
--- NOTE | 2016-05-12 15:41 | EKG Report ---
Test Performed on : 05/12/2016 3:11:05 PM Test Reason : SOB Blood Pressure : / mmHG Vent. Rate : 069 BPM Atrial Rate : 069 BPM P-R Int : 156 ms QRS Dur : 106 ms QT Int : 408 ms P-R-T Axes : 075 -64 053 degrees QTc Int : 437 ms Normal sinus rhythm. Incomplete right bundle branch block Left anterior fascicular block Nonspecific ST and T wave abnormality Abnormal ECG When compared with ECG of 13-APR-2016 05:47, premature ventricular complexes. are no longer present premature supraventricular complexes. are no longer present QT has shortened Unconfirmed Result
[2016-05-12] MEDS ORDERED: ZITHROMAX 500 MG/NS 250 ML IV ONE (16:15)
[2016-05-12] MEDS ORDERED: ROCEPHIN 1 GM/NS 50 ML IV ONE (16:15)
--- NOTE | 2016-05-12 16:16 | Diag Imaging Result Document ---
PROCEDURE NAME: CHEST-2 VIEWS - 05/12/2016 SEATED AP AND LATERAL RADIOGRAPH OF THE CHEST: COMPARISON: 04/13/2016. FINDINGS: Inspiration is suboptimal. There is elevation of the right hemidiaphragm which can be seen on previous studies. There is stable blunting of the left hemidiaphragm which has been seen on a previous study dated 04/12/2016. This may represent chronic pleural thickening or trace effusion. There is adjacent atelectasis and/or infiltrate. No new consolidations are identified otherwise. Cardiac silhouette is stable. IMPRESSION: Mild blunting of the left hemidiaphragm which has been seen on previous studies. No new consolidation identified.
[2016-05-12 16:22] LABS: MANUAL DIFF NEEDED? NO
[2016-05-12 16:37] LABS: BASO% 0.3 % (0.0-0.8); EOS# 0.55 X1000 (0.0-0.7); EOS% 8.1 % (0.0-10.0); HEMATOCRIT 38.1 % (42.0-52.0); HEMOGLOBIN 12.1 g/dL (14.0-18.0); LYMPH# 1.04 X1000 (1.2-3.4); LYMPH% 15.4 % (20.5-51.1); MCH 28.1 PG (27-31); MCHC 31.8 g/dL (33-37); MCV 88.6 FL (81-99); MONO# 0.43 X1000 (0.11-0.59); MONO% 6.4 % (1.7-9.3); MPV 9.6 FL (7.4-10.4); NEUT% 69.8 % (42.2-75.2); PLT 252 X1000 (130-400)
[2016-05-12 16:49] LABS: AGAP 9; ALBUMIN 3.4 g/dL (3.5-5.0); ALKALINE PHOSPHATASE 65 U/L (32-122); BUN 14 mg/dL (8-22); CALCIUM 8.9 mg/dL (8.8-10.2); CHLORIDE 98 mmol/L (98-107); COSMO 272; GOT 14 U/L (10-34); GPT 12 U/L (10-44); POTASSIUM 3.8 mmol/L (3.5-5.1); SODIUM 135 mmol/L (136-145); TCO2 28 mmol/L (25-35); TOTAL PROTEIN 7.6 g/dL (6.3-8.3)
[2016-05-12 16:59] LABS: ALLEN TEST YES; BE 2.2 mmoll (-3.0-3.0); BLOOD TYPE ARTERIAL; DRAW SITE R RADIAL; METHB 1.8 % (0.0-1.5); O2(CT) 15.2 mL/dL (15.0-23.0); PCO2(98.6) 39 mmHg (35-45); PO2(98.6) 71 mmHg (60-100); SAMPLE BLOOD; SAO2 97.5 % (95.0-100.0); THB 11.5 g/dL (11.5-17.4); pH(98.6) 7.44 (7.35-7.45)
[2016-05-12 17:00] LABS: MODALITY ROOM AIR
[2016-05-12 18:46] VITALS: BP 132/68
== END 2016-05-12 18:49 | disposition home or self-care (01) ==
LOC: EDBD → ED 15:00
DX: J44.9 Chronic obstructive pulmonary disease, unspecified (principal); R94.31 Abnormal electrocardiogram [ECG] [EKG]; R06.02 Shortness of breath; R06.2 Wheezing; G83.89 Other specified paralytic syndromes; E78.5 Hyperlipidemia, unspecified; J45.909 Unspecified asthma, uncomplicated; F03.90 Unspecified dementia, unspecified severity, without behavioral disturbance, psychotic disturbance, mood disturbance, and anxiety; Z79.899 Other long term (current) drug therapy; Z91.14 Patient's other noncompliance with medication regimen; Z86.73 Personal history of transient ischemic attack (TIA), and cerebral infarction without residual deficits
CPT/HCPCS: 71020; 80053; 82805; 83880; 85025; 87040; 93005; 94640; J0456; J0696; J2930

== ENCOUNTER 2016-06-01 23:44 | Inpatient (IN) ==
[2016-06-01] MEDS ORDERED: NS 1,000 ML ONE (23:53)
[2016-06-02 00:13] LABS: ALLEN TEST YES; BE 0.7 mmoll (-3.0-3.0); BLOOD TYPE ARTERIAL; DRAW SITE R BRACHIAL; METHB 1.9 % (0.0-1.5); PCO2(98.6) 34 mmHg (35-45); PO2(98.6) 158 mmHg (60-100); SAMPLE BLOOD; SAO2 99.6 % (95.0-100.0); THB 11.6 g/dL (11.5-17.4); pH(98.6) 7.46 (7.35-7.45)
[2016-06-02 00:15] LABS: MODALITY CANNULA
[2016-06-02 00:47] LABS: URINE CULTURE NEEDED? NO; URINE MICRO REVIEW NEEDED? NO; URINE SOURCE CLEAN CATCH
[2016-06-02 00:48] LABS: BASO% 0.2 % (0.0-0.8); EOS# 0.01 X1000 (0.0-0.7); EOS% 0.1 % (0.0-10.0); HEMOGLOBIN 11.5 g/dL (14.0-18.0); IMM GRAN# 0.02 X1000 (0.0-0.04); IMM GRAN% 0.2 % (0.0-0.5); LYMPH# 0.57 X1000 (1.2-3.4); LYMPH% 4.9 % (20.5-51.1); MANUAL DIFF NEEDED? NO; MCH 28.9 PG (27-31); MCHC 33.8 g/dL (33-37); MCV 85.4 FL (81-99); MONO# 0.54 X1000 (0.11-0.59); MONO% 4.7 % (1.7-9.3); MPV 9.9 FL (7.4-10.4); NEUT% 89.9 % (42.2-75.2); PLT 244 X1000 (130-400); RBC 3.98 XMIL (4.7-6.1)
[2016-06-02 00:49] LABS: BILIRUBIN URINE NEGATIVE (NEGATIVE); BLOOD URINE NEGATIVE (NEGATIVE); COLOR YELLOW; GLUCOSE URINE NEGATIVE (NEGATIVE); LEUKOCYTES URINE NEGATIVE (NEGATIVE); NITRITE URINE NEGATIVE (NEGATIVE); PH URINE 5.5; PROTEIN URINE 30 mg/dL (NEGATIVE); SP GRAVITY URINE 1.019; TURBIDITY URINE CLEAR (CLEAR); UROBILINOGEN URINE 2 mg/dL (NORMAL)
[2016-06-02 00:51] LABS: UR EPITHELIAL CELLS <10 /HPF (<10); URINE BACTERIA NEGATIVE /HPF; URINE RBC <10 /HPF (<10); URINE WBC <10 /HPF (<10)
[2016-06-02 00:56] LABS: INR 1.12; PROTIME 11.8 Seconds (9.2-11.7); PTT 32.2 Seconds (22.0-36.0)
[2016-06-02 00:56] LABS: AGAP 16; ALKALINE PHOSPHATASE 55 U/L (32-122); BUN 31 mg/dL (8-22); CALCIUM 9.2 mg/dL (8.8-10.2); CHLORIDE 98 mmol/L (98-107); COSMO 282; GOT 41 U/L (10-34); GPT 26 U/L (10-44); POTASSIUM 3.8 mmol/L (3.5-5.1); SODIUM 136 mmol/L (136-145); TCO2 22 mmol/L (25-35); TOTAL BILIRUBIN 0.93 mg/dL (0.20-1.00); TOTAL PROTEIN 7.7 g/dL (6.3-8.3)
[2016-06-02 00:57] LABS: CK PROFILE 795 U/L (24-204)
[2016-06-02 01:04] LABS: UR AMPHETAMINES QUAL NONE DETECTED (NONE DETECT); UR BARBITUATES QUAL NONE DETECTED (NONE DETECT); UR BENZODIAZEPIN QUAL NONE DETECTED (NONE DETECT); UR CANNABINOIDS QUAL NONE DETECTED (NONE DETECT); UR COCAINE QUAL NONE DETECTED (NONE DETECT); UR METHADONE QUAL NONE DETECTED (NONE DETECT); UR OPIATES QUAL NONE DETECTED (NONE DETECT); UR OXYCODONE QUAL NONE DETECTED (NONE DETECT); UR PCP QUAL NONE DETECTED (NONE DETECT)
[2016-06-02 01:13] LABS: CK INDEX 0.5 (0.0-2.5)
--- NOTE | 2016-06-02 01:42 | PROVIDER DOCUMENTATION ---
This chart was entered by Roberta Harris Scribe, acting as scribe for Tank Dickson MD. HPI-Syncope/Dizziness - General Stated Complaint: AMS Time Seen by Provider: 06/01/16 23:49 Source: family Allergies/Adverse Reactions: Patient Allergies Allergy/AdvReac Type Severity Reaction Status Date / Time No Known Allergies Allergy Verified 06/02/16 01:05 Home Medications: Home Medication List Medication Instructions Recorded Confirmed Last Taken Type Albuterol 2.5MG/Ipratrop 0.5MG 3 ml INH [id number] 04/12/16 06/02/16 06/01/16 History [Duoneb (A & A)] Diltiazem HCl [Diltiazem ER] 120 mg PO DAILY 05/12/16 06/02/16 06/01/16 History Donepezil [Aricept] 5 mg PO QAM 05/12/16 06/02/16 06/01/16 History Lisinopril 5 mg PO DAILY 05/12/16 06/02/16 06/01/16 History Quetiapine [Seroquel] 25 mg PO HS 05/12/16 06/02/16 06/01/16 History - History of Present Illness-Syncope/Dizzy Nature of Presenting Problem: 89 Y/O M presents to ED with Altered Mental Status. Pt family sates Pt has not eaten in a five days and passed out this evening. On arrival pt was unconscious. Caretakers state around 9pm that were putting pt to bed and noticed he was altered and wasn't responding, states he does respond to painful stimuli. EMS states Pt B/P was in the 60s. Prior Episodes: reports: no prior history Onset/Duration: reports: 4-6 hours ago, this evening Timing: reports: still present Position/Activity at time of episode: reports: sitting Symptoms prior to episode: reports: unknown Context: reports: became unresponsive Similar symptoms previously: reports: previous diagnosis (COPD exuberation) Review of Systems - Adult - REVIEW OF SYSTEMS - ADULT ROS:: unobtainable per condition (unresponsive on arrival) Constitutional: denies: chills, fever, night sweats Past History - Adult - PAST MEDICAL HISTORY-ADULT Review of Records: reports: Old Records Reviewed, Nursing Assessment Review, Medications Reviewed, Social history reviewed & non-contributory. Cardiovascular: reports: heart valve problem, hyperlipidemia Respiratory: reports: asthma, COPD Neurological: reports: CVA - PRIOR SURGERIES/PROCEDURES Surgical/Procedure History: reports: other (cardiac valve repair x2) - IMMUNIZATION STATUS Childhood Immunizations: See Nurse Assessment Flu Vaccine: See Nurse Assessment - SOCIAL HISTORY Smoking: non-smoker Substance Use: none/never Alcohol Use Frequency: never Living Situation: care facility Physical Exam-General - PHYSICAL EXAM-ADULT Exam Limited by: unconscious,unresponsive - CONSTITUTIONAL General Appearance: severe distress, other (unresponsive in ED) - HEAD, EARS, NOSE, MOUTH & THROAT HENMT: normocephalic/atraumatic, moist mucous membranes, normal ENT inspection, TMs normal, pharynx normal - NECK Neck: non-tender, full range of motion, supple, normal inspection - RESPIRATORY Respiratory: chest non-tender, lungs clear, normal breath sounds - CARDIOVASCULAR Cardiovascular: normal peripheral pulses, regular rate, rhythm - GASTROINTESTINAL (ABDOMEN) Abdominal Exam: normal bowel sounds, non tender, soft - LYMPHATIC Lymphatic: no adenopathy - SKIN Integumentary: normal color, normal turgor, warm/dry Progress - PLAN OF CARE/RESULTS Progress/Plan/Lab Results: Vital Signs - 8 hr 06/01/16 23:48 06/01/16 23:55 06/02/16 00:00 Pulse Rate 80 80 79 Respiratory Rate 19 15 18 Blood Pressure 88/47 90/43 99/49 O2 Sat by Pulse Oximetry 100 91 L 100 06/02/16 00:10 06/02/16 00:20 06/02/16 00:30 Pulse Rate 79 75 77 Respiratory Rate 13 20 15 Blood Pressure 94/46 108/53 84/47 O2 Sat by Pulse Oximetry 99 92 L 91 L 06/02/16 00:40 06/02/16 00:56 Pulse Rate 75 70 Respiratory Rate 20 14 Blood Pressure 81/45 89/47 O2 Sat by Pulse Oximetry 91 L 93 L Laboratory Results - last 24 hr 06/02/16 06/02/16 06/02/16 00:00 00:10 00:10 WBC 11.54 H RBC 3.98 L Hgb 11.5 L Hct 34.0 L MCV 85.4 MCH 28.9 MCHC 33.8 RDW Std Deviation 14.6 H Plt Count 244 MPV 9.9 Immature Gran % (Auto) 0.2 Neut % (Auto) 89.9 H Lymph % (Auto) 4.9 L [place] % (Auto) 4.7 Eos % (Auto) 0.1 Baso % (Auto) 0.2 Immature Gran # (Auto) 0.02 Neut # (Auto) 10.38 H Lymph # (Auto) 0.57 L [place] # (Auto) 0.54 Eos # (Auto) 0.01 Baso # (Auto) 0.02 PT INR PTT (Actin FS) D-Dimer Specimen Type ARTERIAL Sample Site R BRACHIAL pH 7.46 H pCO2 34 L pO2 158 H HCO3 25.5 Base Excess 0.7 Oxyhemoglobin 96.1 ABG O2 Sat (Calculated) 16.0 ABG O2 Saturation 99.6 ABG Carboxyhemoglobin 1.60 ABG Methemoglobin 1.9 H Jay Test YES A-a O2 Difference 85.0 Total Hemoglobin 11.6 Lactate 1.20 Liter Flow 5.0 Blood Gas Modality CANNULA FiO2 % 40.0 Sodium Potassium Chloride Carbon Dioxide Anion Gap BUN Creatinine Estimated GFR/1.73 m2 BUN/Creatinine Ratio Glucose Calculated Osmolality Calcium Total Bilirubin AST ALT Alkaline Phosphatase Creatine Kinase Creatine Kinase Index CK-MB (CK-2) Troponin T Wbq-M-Vuhlggbhiee Pept Total Protein Albumin Globulin Albumin/Globulin Ratio Plasma Lactate Urine Source Urine Color Urine Turbidity Urine pH Ur Specific [place] Urine Protein Ur Glucose (Stick) Ur Ketones (Stick) Urine Blood Urine Nitrite Urine Bilirubin Urobilinogen Dipstick Urine Leukocytes Urine WBC (Auto) Urine RBC (Auto) U Epithel Cells (Auto) Urine Bacteria (Auto) Urine Opiates Screen Ur Oxycodone Screen Ur Methadone, Qual Ur Barbiturates Screen Ur Phencyclidine Scrn Ur Amphetamines Screen U Benzodiazepines Scrn Urine Cocaine Screen U Cannabinoids Screen Plasma/Serum Ethyl Alc 06/02/16 06/02/16 06/02/16 00:10 00:39 00:40 WBC RBC Hgb Hct MCV MCH MCHC RDW Std Deviation Plt Count MPV Immature Gran % (Auto) Neut % (Auto) Lymph % (Auto) [place] % (Auto) Eos % (Auto) Baso % (Auto) Immature Gran # (Auto) Neut # (Auto) Lymph # (Auto) [place] # (Auto) Eos # (Auto) Baso # (Auto) PT INR PTT (Actin FS) D-Dimer 4.95 H Specimen Type Sample Site pH pCO2 pO2 HCO3 Base Excess Oxyhemoglobin ABG O2 Sat (Calculated) ABG O2 Saturation ABG Carboxyhemoglobin ABG Methemoglobin Jay Test A-a O2 Difference Total Hemoglobin Lactate Liter Flow Blood Gas Modality FiO2 % Sodium 136 Potassium 3.8 Chloride 98 Carbon Dioxide 22 L Anion Gap 16 BUN 31 H Creatinine 1.3 H Estimated GFR/1.73 m2 > 60 BUN/Creatinine Ratio 24 Glucose 162 H Calculated Osmolality 282 Calcium 9.2 Total Bilirubin 0.93 AST 41 H ALT 26 Alkaline Phosphatase 55 Creatine Kinase 795 H Creatine Kinase Index 0.5 CK-MB (CK-2) 4.20 Troponin T Pzd-O-Jymedrtzmax Pept Total Protein 7.7 Albumin 3.0 L Globulin 4.7 Albumin/Globulin Ratio 0.6 Plasma Lactate 1.2 Urine Source Urine Color Urine Turbidity Urine pH Ur Specific [place] Urine Protein Ur Glucose (Stick) Ur Ketones (Stick) Urine Blood Urine Nitrite Urine Bilirubin Urobilinogen Dipstick Urine Leukocytes Urine WBC (Auto) Urine RBC (Auto) U Epithel Cells (Auto) Urine Bacteria (Auto) Urine Opiates Screen Ur Oxycodone Screen Ur Methadone, Qual Ur Barbiturates Screen Ur Phencyclidine Scrn Ur Amphetamines Screen U Benzodiazepines Scrn Urine Cocaine Screen U Cannabinoids Screen Plasma/Serum Ethyl Alc 06/02/16 06/02/16 06/02/16 00:40 00:40 00:40 WBC RBC Hgb Hct MCV MCH MCHC RDW Std Deviation Plt Count MPV Immature Gran % (Auto) Neut % (Auto) Lymph % (Auto) [place] % (Auto) Eos % (Auto) Baso % (Auto) Immature Gran # (Auto) Neut # (Auto) Lymph # (Auto) [place] # (Auto) Eos # (Auto) Baso # (Auto) PT 11.8 H INR 1.12 PTT (Actin FS) 32.2 D-Dimer Specimen Type Sample Site pH pCO2 pO2 HCO3 Base Excess Oxyhemoglobin ABG O2 Sat (Calculated) ABG O2 Saturation ABG Carboxyhemoglobin ABG Methemoglobin Jay Test A-a O2 Difference Total Hemoglobin Lactate Liter Flow Blood Gas Modality FiO2 % Sodium Potassium Chloride Carbon Dioxide Anion Gap BUN Creatinine Estimated GFR/1.73 m2 BUN/Creatinine Ratio Glucose Calculated Osmolality Calcium Total Bilirubin AST ALT Alkaline Phosphatase Creatine Kinase Creatine Kinase Index CK-MB (CK-2) Troponin T 0.074 Azg-Q-Xuyeevbsanb Pept 1793 H Total Protein Albumin Globulin Albumin/Globulin Ratio Plasma Lactate Urine Source Urine Color Urine Turbidity Urine pH Ur Specific [place] Urine Protein Ur Glucose (Stick) Ur Ketones (Stick) Urine Blood Urine Nitrite Urine Bilirubin Urobilinogen Dipstick Urine Leukocytes Urine WBC (Auto) Urine RBC (Auto) U Epithel Cells (Auto) Urine Bacteria (Auto) Urine Opiates Screen Ur Oxycodone Screen Ur Methadone, Qual Ur Barbiturates Screen Ur Phencyclidine Scrn Ur Amphetamines Screen U Benzodiazepines Scrn Urine Cocaine Screen U Cannabinoids Screen Plasma/Serum Ethyl Alc 06/02/16 06/02/16 00:40 00:40 WBC RBC Hgb Hct MCV MCH MCHC RDW Std Deviation Plt Count MPV Immature Gran % (Auto) Neut % (Auto) Lymph % (Auto) [place] % (Auto) Eos % (Auto) Baso % (Auto) Immature Gran # (Auto) Neut # (Auto) Lymph # (Auto) [place] # (Auto) Eos # (Auto) Baso # (Auto) PT INR PTT (Actin FS) D-Dimer Specimen Type Sample Site pH pCO2 pO2 HCO3 Base Excess Oxyhemoglobin ABG O2 Sat (Calculated) ABG O2 Saturation ABG Carboxyhemoglobin ABG Methemoglobin Jay Test A-a O2 Difference Total Hemoglobin Lactate Liter Flow Blood Gas Modality FiO2 % Sodium Potassium Chloride Carbon Dioxide Anion Gap BUN Creatinine Estimated GFR/1.73 m2 BUN/Creatinine Ratio Glucose Calculated Osmolality Calcium Total Bilirubin AST ALT Alkaline Phosphatase Creatine Kinase Creatine Kinase Index CK-MB (CK-2) Troponin T Cgf-M-Hijuhtnyyxs Pept Total Protein Albumin Globulin Albumin/Globulin Ratio Plasma Lactate Urine Source CLEAN CATCH Urine Color YELLOW Urine Turbidity CLEAR Urine pH 5.5 Ur Specific [place] 1.019 Urine Protein 30 A Ur Glucose (Stick) NEGATIVE Ur Ketones (Stick) 10 A Urine Blood NEGATIVE Urine Nitrite NEGATIVE Urine Bilirubin NEGATIVE Urobilinogen Dipstick 2 A Urine Leukocytes NEGATIVE Urine WBC (Auto) <10 Urine RBC (Auto) <10 U Epithel Cells (Auto) <10 Urine Bacteria (Auto) NEGATIVE Urine Opiates Screen NONE DETECTED Ur Oxycodone Screen NONE DETECTED Ur Methadone, Qual NONE DETECTED Ur Barbiturates Screen NONE DETECTED Ur Phencyclidine Scrn NONE DETECTED Ur Amphetamines Screen NONE DETECTED U Benzodiazepines Scrn NONE DETECTED Urine Cocaine Screen NONE DETECTED U Cannabinoids Screen NONE DETECTED Plasma/Serum Ethyl Alc Orders Category Date Time Status Cardiac Monitoring DIRECTED Care 06/01/16 23:50 Active Finger Stick Blood Sugar (ED) DIRECTED Care 06/01/16 23:50 Active Oxygen Therapy- ED Nursing DIRECTED Care 06/01/16 23:50 Active Saline Loc NOW Care 06/01/16 23:50 Active ANGIOGRAM/PULMONARY ARTERIES [CT] Stat Exams 06/02/16 01:06 Ordered CHEST-PORTABLE [RAD] Stat Exams 06/01/16 23:50 Taken HEAD W/O CONTRAST [CT] Stat Exams 06/01/16 23:45 Taken ABG [RESP] Routine Lab 06/01/16 23:50 Completed ALCOHOL BLOOD Stat Lab 06/02/16 00:10 Completed BNP [PRO B-NATRIURETIC PEPTIDE] Stat Lab 06/02/16 00:40 Completed CBC WITH ELECTRONIC DIFF [HEME] Stat Lab 06/02/16 00:10 Completed CK PROFILE [SP CHEM] Stat Lab 06/02/16 00:10 Completed COMPREHENSIVE METABOLIC PANEL [CHEM] Stat Lab 06/02/16 00:10 Completed D-DIMER [CHEM] Stat Lab 06/02/16 00:40 Completed LACTATE, PLASMA [CHEM] Stat Lab 06/02/16 00:39 Completed PROTIME WITH INR [COAG] Stat Lab 06/02/16 00:40 Completed PTT [COAG] Stat Lab 06/02/16 00:40 Completed TROPONIN T Stat Lab 06/02/16 00:40 Completed URINALYSIS W/POSS RFLX CULT [URINALYSIS] Stat Lab 06/02/16 00:40 Completed URINE DRUG SCREEN Stat Lab 06/02/16 00:40 Completed 0.9% Sodium Chloride Inj [Ns] 1,000 ml Med 06/01/16 23:53 Discontinued .ROUTE As Directed Pulse Oximetry Stat Oth 06/01/16 23:50 Active EKG [EKG] Stat Ther 06/01/16 23:50 Ordered Result Diagrams: 06/02/16 00:10 06/02/16 00:10 - EKG 1 Time of EKG reading by physician:: 23:58 EKG Read and Signed by:: Tank Dickson EKG Interpretation (*Must complete 3 of following elements*): Abnormal Rate: 78 Rhythm: Sinus Rhythm with premature atrial complexes QRS: RBB (incomplete) Comments: Abnormal ECG, left anterior fascicular block - XRAY 1 XRAY Study: Chest Impression: Normal XRAY Interpretation: NAD - CT/MRI 1 CT Study: Head Impression: Normal CT Results: NAD. Chronic white matter disease w/ advance cerebral atrophy - CONSULTS/PCP/HOSPITALIST Notification #1 *Consult/PCP/Hospitalist*: Time Discussed: 01:15 Reason/Comments: Admitting Consult Disposition: Admit (Admit Accepted) Departure - Departure Time of Disposition Decision: 01:40 DIAGNOSIS: Dementia Qualifiers: Dementia type: unspecified type Dementia behavioral disturbance: without behavioral disturbance Qualified Code(s): F03.90 - Unspecified dementia without behavioral disturbance Disposition: ADMITTED INPATIENT 09 Certified Medical Emergency: Emergent Condition: Serious This chart was documented by the indicated scribe, (Roberta Harris Scribe) and accurately reflects the services I performed and decisions made by me, Tank Dickson MD, as attested by the provider's signature.
[2016-06-02] MEDS ORDERED: NS 500 ML IV ONE (02:14)
[2016-06-02] MEDS ORDERED: NS 1,000 ML IV SCH (02:26)
--- NOTE | 2016-06-02 03:10 | HISTORY AND PHYSICAL ---
CHIEF COMPLAINT: Patient is lethargic and not responding. HISTORY OF PRESENTING ILLNESS: An 89-year-old male with a history of CVA with left-sided paralysis, hypertension, dementia, and COPD, basically bedbound, who was brought to the emergency department by family members due to patient becoming lethargic and not responding. He was evaluated in the ER and it seemed that the patient was moderately dehydrated. Not much of the information could be obtained from patient. Most of the history is obtained from family members. As per family, he has not been eating or drinking for the past 4-5 days, and has become more weak and not really responding. PAST MEDICAL HISTORY: Includes asthma, COPD, CVA, left-sided paresis, hypertension, and dementia. PAST SURGICAL HISTORY: Heart valve replacement and hernia repair. ALLERGIES: No known drug allergies. CURRENT MEDICATIONS: Listed in the MAR. SOCIAL HISTORY: He is a former smoker. History of alcohol abuse in the past. Denies any illicit drug use. FAMILY HISTORY: No history of coronary disease. REVIEW OF SYSTEMS: Unable to obtain. PHYSICAL EXAMINATION: GENERAL: The patient is obtunded. VITAL SIGNS: Pulse 80, respirations 19, blood pressure 88/47. HEENT: Atraumatic, normocephalic. NECK: No masses. CHEST: Rhonchi. CARDIOVASCULAR: Regular rate and rhythm. ABDOMEN: Soft. Positive bowel sounds. EXTREMITIES: No edema. NEUROLOGIC: He is obtunded. : No bladder distention. SKIN: Dry. LABORATORIES AND STUDIES: Sodium 136, potassium 3.8, chloride 98, CO2 of 22, BUN is 31, creatinine is 1.3, glucose is 162. WBCs 11.54, hemoglobin 11.5, hematocrit 34, platelets 224,000. ASSESSMENT: An 89-year-old male with a history of cerebrovascular accident with left-sided paralysis, chronic obstructive pulmonary disease, hypertension, and dementia who brought to the emergency department due to patient not responding and lethargic. He was evaluated in the emergency room and seemed to be moderately dehydrated. The patient will need hospitalization for further management. 1. Failure to thrive. 2. Acute dehydration. 3. History of cerebrovascular accident. 4. Advanced age. PLAN: 1. We will admit patient to the medical floor with telemetry. 2. Continue with supportive treatment with IV fluids. 3. I discussed with patient the options including hospice. 4. Family will talk with social service. 5. Put patient on DVT prophylaxis with SCDs. 6. We will continue to follow and reassess. cc: Kendall Mayers MD
--- NOTE | 2016-06-02 05:13 | EKG Report ---
Test Performed on : 06/01/2016 11:58:55 PM Test Reason : AMS Blood Pressure : / mmHG Vent. Rate : 078 BPM Atrial Rate : 078 BPM P-R Int : 140 ms QRS Dur : 100 ms QT Int : 408 ms P-R-T Axes : 000 -76 090 degrees QTc Int : 465 ms Sinus rhythm. with premature atrial complexes. Incomplete right bundle branch block Left anterior fascicular block Nonspecific ST and T wave abnormality Abnormal ECG When compared with ECG of 12-MAY-2016 15:11, premature atrial complexes. are now present Non-specific change in ST segment in Anterior leads Unconfirmed Result
--- NOTE | 2016-06-02 06:35 | Diag Imaging Result Document ---
PROCEDURE NAME: CHEST-PORTABLE - 06/01/2016 PORTABLE CHEST: COMPARISON: Compared to 05/12/2016. FINDINGS: There are sternal wires and surgical clips. The heart is not enlarged. The pulmonary vessels are not distended. No pleural effusions identified. There are scattered granuloma. No consolidation. Mild scoliosis. Multiple old rib fractures. Questionable small infiltrate in the lower left lung. No other abnormality. IMPRESSION: Possible atelectasis or small infiltrate in the lower left lung.
[2016-06-02 07:25] LABS: BASO% 0.1 % (0.0-0.8); EOS# 0.02 X1000 (0.0-0.7); EOS% 0.2 % (0.0-10.0); HEMATOCRIT 32.4 % (42.0-52.0); HEMOGLOBIN 10.6 g/dL (14.0-18.0); LYMPH# 0.69 X1000 (1.2-3.4); LYMPH% 6.7 % (20.5-51.1); MANUAL DIFF NEEDED? YES; MCH 28.3 PG (27-31); MCHC 32.7 g/dL (33-37); MCV 86.4 FL (81-99); MONO# 0.49 X1000 (0.11-0.59); MONO% 4.7 % (1.7-9.3); MPV 9.7 FL (7.4-10.4); NEUT% 88.3 % (42.2-75.2); PLT 204 X1000 (130-400); RBC 3.75 XMIL (4.7-6.1)
--- NOTE | 2016-06-02 07:29 | Diag Imaging Result Document ---
PROCEDURE NAME: ANGIOGRAM/PULMONARY ARTERIES - 06/02/2016 CT PULMONARY ANGIOGRAM WITH INTRAVENOUS CONTRAST: A CT dose reduction protocol was used. COMPARISON: None. FINDINGS: Axial CT images of the chest were obtained after administering intravenous contrast. Coronal MIP images were generated. There is no pulmonary embolism. There are CABG changes. Heart size is normal. There are extensive vascular calcifications of the celiac , mesenteric, and renal arteries. There is relatively severe renal artery stenosis as well as stenosis of the superior mesenteric artery. There is chronic bronchitis throughout the lungs. There is bronchopneumonia in the lingula and left lower lobe. There is mucus plugging in the lower lobes bilaterally. These are in segmental airways. There are old rib deformities on the right. Heavy degenerative changes of the spine. Minimal compression deformity at T12. No definitely acute bony lesions. IMPRESSION: 1. Negative for pulmonary embolism. 2. Extensive chronic bronchitis. 3. Bronchopneumonia in the left upper and lower lobes. 4. Extensive mucous plugging in segmental airways in the lung bases. [facility]
[2016-06-02 07:36] LABS: EOS 2 % (1-10); LYMPHS 12 % (21-51)
--- NOTE | 2016-06-02 07:36 | Diag Imaging Result Document ---
PROCEDURE NAME: HEAD W/O CONTRAST - 06/01/[address], 06/01/2016: A CT dose reduction protocol was used. COMPARISON: 04/12/2016. FINDINGS: There is moderate periventricular white matter chronic microvascular disease and cerebral atrophy, stable from prior. No intracranial mass or hemorrhage. The skull is intact. The sinuses, mastoids, and middle ears are clear. IMPRESSION: Stable chronic ischemic changes of the brain. [facility]
[2016-06-02 07:43] LABS: AGAP 13; ALBUMIN 2.5 g/dL (3.5-5.0); ALKALINE PHOSPHATASE 49 U/L (32-122); BUN 28 mg/dL (8-22); CALCIUM 8.7 mg/dL (8.8-10.2); CHLORIDE 104 mmol/L (98-107); COSMO 282; GOT 36 U/L (10-34); GPT 23 U/L (10-44); SODIUM 138 mmol/L (136-145); TCO2 21 mmol/L (25-35); TOTAL BILIRUBIN 0.94 mg/dL (0.20-1.00); TOTAL PROTEIN 6.7 g/dL (6.3-8.3)
[2016-06-02] MEDS: ARICEPT PO SCH (08:09)
[2016-06-02] MEDS: CARDIZEM CD PO SCH (08:09)
[2016-06-02] MEDS ORDERED: ZITHROMAX 500 MG/NS 500 MG/250 ML IVPB IV SCH (08:15)
[2016-06-02] MEDS: ROCEPHIN 1 GM/NS 1 GM/50 ML IVPB IV SCH (09:20)
[2016-06-02] MEDS: NS 1,000 ML IV SCH ×2 (12:50→16:25)
--- NOTE | 2016-06-02 12:53 | PROGRESS NOTE ---
DATE: 06/02/2016 SUBJECTIVE: He was admitted early this morning. The patient was brought in lethargic, not responding. An 89-year-old with history of CVA with left-sided paralysis, hypertension, dementia, COPD, basically bed bound. Brought into the emergency department by family. He is more lethargic and not responding. He was evaluated in the emergency room and seemed to have be mildly dehydrated. Not much information could be obtained from the patient. Most of the history obtained from family members. As per family, he has not been eating and drinking for the last 4-5 days. He became more weak and really not responding. PAST MEDICAL HISTORY: Asthma, COPD, CVA with left hemiparesis, hypertension, dementia. PAST SURGICAL HISTORY: Heart valve replacement and hernia repair. ALLERGIES: No known drug allergies. SOCIAL HISTORY: Former smoker. History of alcohol abuse in the past. He denies any drug use. No present alcohol reported. He was admitted with failure to thrive and acute dehydration. He was resting comfortably lying on his left side. He had sign of distress. PHYSICAL EXAMINATION: Otherwise, looking at his vital signs, blood pressure was 113/55, pulse 80, respirations 14, afebrile temperature 97.3 degrees. Lungs are clear. Anterior, lateral, and posterior. Cardiovascular: Regular rhythm and rate without murmur or S3. Abdomen is soft. Skin is warm and dry. He has very little urine output thus far. He has a Yusuf catheter in. LABORATORY: Reviewed from this morning, white count 11,540. Hematocrit 34, platelet count 244,000. His electrolytes 136, potassium 3.8, chloride 98. BUN 31, creatinine 1.3. ProBNP 1793. Troponin was 0.074. Albumin 2.5. Lactate level is 1.2. He had a pulmonary arteriogram done this morning. Negative for pulmonary embolism. Extensive chronic bronchitis. Bronchopneumonia in the left upper and lower lobes. Extensive mucous plugging in the segmental airways in the lung bases. His EKG reviewed from this morning and, it looks like it, is normal sinus rhythm, incomplete right bundle branch block. Left anterior fascicular block. No ST-segment changes. Chest x-ray from yesterday evening: Possible atelectasis. Small infiltrate in the left lower lobe. CT of the head without contrast, stable. ASSESSMENT AND PLAN: 1. It looks like he has had a left lung pneumonia, left lower lobe, and he looks a little dehydrated, so he is getting ceftriaxone 1 g to 24 hours. He is also getting azithromycin q 24 hours. I think I will stop the azithromycin, continue his fluid. I think we will run normal saline in at 125 mL an hour. Actually, he is getting 60 mL an hour now. I may go up on his fluid. 2. Dementia. He is on Aricept. 3. He has had a stroke and left-sided hemiparesis. 4. He is on Cardizem. I did not see a history of atrial fib, but that may be in his past history. Continue his Cardizem for now. cc: Jay Oliveira MD
[2016-06-02] MEDS: SEROQUEL PO SCH (21:32)
--- NOTE | 2016-06-02 21:49 | CONSULTATION ---
DATE OF CONSULTATION: 06/02/2016 REQUESTING PHYSICIAN: Jay Oliveira M.D. REASON FOR CONSULTATION: Mucus plugging. HISTORY OF PRESENT ILLNESS: Mr. Pitt is an 89-year-old, black male with a prior history of stroke, history of dementia, prior tobacco history, who is chronically bedbound. The patient was admitted to the hospital for 7 days in March with dehydration. After treatment patient was discharged to rehabilitation. A few days after rehabilitation, patient was brought to the emergency room with increased shortness of breath and by report had not been receiving his nebulizer therapy. The patient was brought to the emergency room on 06/01/2016 with decreased mental status and decreased p.o. intake for 5 days. He was mildly hypotensive in the emergency room but not tachycardic. He had mild leukocytosis. Chest x-ray revealed a possible infiltrate in the left lung. CT pulmonary angiogram was performed early this morning which revealed extensive bronchitis with pneumonia and mucus plugging in the left upper and lower lobes. PAST MEDICAL HISTORY: 1. Prior CVA. 2. Dementia. 3. Hypertension. 4. COPD. 5. Status post heart valve surgery. 6. Status post hernia repair. SOCIAL HISTORY: Prior tobacco use not quantitated. Prior alcohol use not quantitated. FAMILY HISTORY: Noncontributory to current presentation. REVIEW OF SYSTEMS: Cannot be obtained. PHYSICAL EXAMINATION: General: Reveals a chronically ill-appearing, black male, who is bail bound and poorly responsive. Vital Signs: BP 105/55, heart rate 69, respiratory rate 18, oxygen saturation 97%. HEENT: Pupils are equal and reactive. Oropharynx is dry. Neck: Supple. Chest: Reveals scattered rhonchi bilaterally. Cardiac Examination: Regular rate. Normal S1, normal S2. Abdomen: Soft. Extremities: Reveal contracture from prior CVA. LABORATORIES: Chemistry on admission: Sodium 136, potassium 3.8, chloride 98, bicarbonate 22, BUN 31, creatinine 1.3, CPK 795, albumin 3.0, white blood count 11.5, hemoglobin 11.5 with a left shift. IMPRESSION: An 89-year-old with dementia, prior stroke, who presents with community-acquired pneumonia, increased mucus in the airway associated with the pneumonia, leukocytosis, rhabdomyolysis, dehydration with acute kidney injury. The patient has been ill for approximately 5 days according to the emergency room report. This is his third ER admission and second hospital admission in the last 2 months. RECOMMENDATIONS: 1. Continue broad-spectrum antibiotics. We will add additional gram-negative coverage with Levaquin. He is on a neuroleptic and, therefore, an EKG will be performed tomorrow to check a QTc interval. 2. Head. Bronchodilators and Mucomyst to his regimen. 3. Continue hydration for his dehydration, rhabdomyolysis and acute kidney injury. 4. Overall prognosis is poor. Would consider a Palliative Care consultation. cc: Talib Chery MD
[2016-06-02] MEDS: LEVAQUIN 500 MG/D5W 500 MG/100 ML IVPB IV SCH (22:10)
[2016-06-02] MEDS: DUONEB (A & A) INH SCH (23:09)
[2016-06-03] MEDS: NS 1,000 ML IV SCH ×3 (00:17→17:23)
[2016-06-03] MEDS: DUONEB (A & A) INH SCH ×4 (03:19→20:24)
[2016-06-03 06:44] LABS: MANUAL DIFF NEEDED? NO
[2016-06-03 06:53] LABS: BASO% 0.1 % (0.0-0.8); EOS# 0.11 X1000 (0.0-0.7); EOS% 1.4 % (0.0-10.0); HEMATOCRIT 30.6 % (42.0-52.0); HEMOGLOBIN 9.8 g/dL (14.0-18.0); IMM GRAN# 0.02 X1000 (0.0-0.04); IMM GRAN% 0.3 % (0.0-0.5); LYMPH% 7.8 % (20.5-51.1); MCV 87.4 FL (81-99); MONO# 0.43 X1000 (0.11-0.59); MONO% 5.6 % (1.7-9.3); MPV 9.9 FL (7.4-10.4); NEUT% 84.8 % (42.2-75.2); PLT 192 X1000 (130-400)
[2016-06-03 07:13] LABS: AGAP 12; BUN 17 mg/dL (8-22); CALCIUM 8.1 mg/dL (8.8-10.2); CHLORIDE 109 mmol/L (98-107); COSMO 280; POTASSIUM 3.5 mmol/L (3.5-5.1); SODIUM 140 mmol/L (136-145); TCO2 19 mmol/L (25-35)
[2016-06-03] MEDS: MUCOMYST 20% INH SCH ×2 (09:30→20:24)
[2016-06-03] MEDS: ARICEPT PO SCH (11:05)
[2016-06-03] MEDS: ROCEPHIN 1 GM/NS 1 GM/50 ML IVPB IV SCH (11:05)
[2016-06-03] MEDS: CARDIZEM CD PO SCH (11:05)
--- NOTE | 2016-06-03 12:22 | PROGRESS NOTE ---
DATE: 06/03/2016 SUBJECTIVE: Mr. Pitt has been able to get a little bit of liquids down. He has woken up some. His granddaughter was at the bedside. She appears to be breathing comfortably. OBJECTIVE: Vital Signs: Afebrile with temp 98.2 degrees, pulse 85, respirations 16, blood pressure 110/65. HEENT: Pupils were equal and round. CVP less than 6 cm. Lungs: Clear in all lung whelan. Cardiovascular exam: Regular rhythm and rate without murmur or S3. Abdomen: Soft. Skin: Warm and dry. : Urine output was about 850 mL. LABS: White count 7720, hematocrit 30, platelet count 192,000. Sodium 140, potassium 3.5, chloride 109, bicarbonate 19, BUN 17, creatinine 0.7. Blood sugar is 105 and 88. Calcium is 8.1, albumin 2.5. ASSESSMENT AND PLAN: 1. Looks like a left lung pneumonia lower lung. Continue hydration and intravenous antibiotics. Ceftriaxone 1 g q. 24 hours. He is on azithromycin which I had stopped yesterday. Appears to be a lobar community-acquired pneumonia. 2. Dementia. He is on Aricept, but there is progression of his dementia and poor appetite and poor initiative to eat and swallow. 3. Had a stroke with left-sided hemiparesis. Review of his current orders: I do not see any change at this point in time. Dr. Chery had started him on Levaquin, in addition to the ceftriaxone. He had additional gram-negative coverage with the Levaquin. He is on neuroleptic, and therefore we will follow his QTc interval. He is on Seroquel and so make sure we get an EKG. cc: Jay Oliveira MD
[2016-06-03] MEDS: SEROQUEL PO SCH (22:04)
[2016-06-03] MEDS: LEVAQUIN 500 MG/D5W 500 MG/100 ML IVPB IV SCH (22:06)
[2016-06-04] MEDS: NS 1,000 ML IV SCH (02:34)
[2016-06-04] MEDS: DUONEB (A & A) INH SCH ×4 (03:54→20:32)
--- NOTE | 2016-06-04 06:37 | EKG Report ---
Test Performed on : 06/04/2016 06:03:28 AM Test Reason : CP Blood Pressure : / mmHG Vent. Rate : 090 BPM Atrial Rate : 090 BPM P-R Int : 136 ms QRS Dur : 106 ms QT Int : 362 ms P-R-T Axes : 047 -41 075 degrees QTc Int : 442 ms Normal sinus rhythm. Left axis deviation RSR' or QR pattern in V1 suggests right ventricular conduction delay Septal infarct , age undetermined Abnormal ECG When compared with ECG of 01-JUN-2016 23:58, premature atrial complexes. are no longer present Septal infarct is now present Confirmed by Modesta HARGROVE, Wes Keller ([id number]) on 06/04/2016 9:52:27 PM
[2016-06-04 07:07] LABS: AGAP 10; ALKALINE PHOSPHATASE 40 U/L (32-122); BUN 11 mg/dL (8-22); CALCIUM 7.9 mg/dL (8.8-10.2); CHLORIDE 110 mmol/L (98-107); COSMO 278; GOT 30 U/L (10-34); GPT 19 U/L (10-44); MAGNESIUM 1.7 mg/dL (1.5-2.7); POTASSIUM 3.5 mmol/L (3.5-5.1); SODIUM 140 mmol/L (136-145); TCO2 20 mmol/L (25-35); TOTAL BILIRUBIN 0.27 mg/dL (0.20-1.00); TOTAL PROTEIN 5.2 g/dL (6.3-8.3)
[2016-06-04 07:25] LABS: FREE T4 1.02 ng/dL (0.93-1.70)
[2016-06-04] MEDS: MUCOMYST 20% INH SCH ×2 (08:57→20:31)
[2016-06-04] MEDS: CARDIZEM CD PO SCH (09:42)
[2016-06-04] MEDS: ARICEPT PO SCH (09:42)
[2016-06-04] MEDS: ROCEPHIN 1 GM/NS 1 GM/50 ML IVPB IV SCH (09:42)
[2016-06-04] MEDS ORDERED: KLOR-CON PO ONE (11:09)
[2016-06-04] MEDS ORDERED: LASIX IV ONE (11:09)
--- NOTE | 2016-06-04 11:09 | Diag Imaging Result Document ---
PROCEDURE NAME: CHEST-1 VIEW - 06/04/2016 PORTABLE CHEST: COMPARISON: 06/02/2016. FINDINGS: Sternal wires and surgical clips are present. The left arm overlies the left chest on the current exam. The heart is not enlarged. The vessels are not distended. I believe there is a small left effusion with atelectasis or an infiltrate in the lower left lung. There are several old right rib fractures. IMPRESSION: I believe there is atelectasis and a small infiltrate in the lower left lung.
[2016-06-04] MEDS ORDERED: NS 1,000 ML IV SCH ×2 (11:12→12:29)
--- NOTE | 2016-06-04 13:34 | PROGRESS NOTE ---
DATE: 06/04/2016 SUBJECTIVE: Mr. Pitt is awake and alert. He is feeling much better. He is actually eating some. He is much more oriented. OBJECTIVE: Vital Signs: Temperature 99.6 degrees, remains afebrile. Pulse 84, respirations 15, blood pressure 124/87. HEENT and Neck: Pupils are equal round. CVP less than 6 cm. Lungs: Clear in all lung whelan. Cardiovascular: Regular rhythm and rate without murmur or S3. Genitourinary: Good urine output, over 2 liters. LABORATORY DATA: Review of labs from this morning, sodium 140, potassium 3.5, chloride 110, BUN 11 and creatinine 0.6, so renal function has improved. Chest x-ray from this morning, there is some atelectasis, small infiltrate in the left lower lung. EKG done this morning, I do not see any prolongation of QT interval, QTc interval. Normal sinus rhythm, normal axis. Unremarkable EKG. ASSESSMENT AND PLAN: 1. Underlying dementia with left lower lung pneumonia. He appears to be doing better. Continue ceftriaxone 1 gram and then azithromycin, which we had stopped yesterday. We will continue the ceftriaxone another 48 hours. 2. Dementia, on Aricept. He seems to be waking up. 3. Dehydration, volume depletion, intravascular volume depletion, improving. Electrolytes look better. His creatinine has gone down. 4. Left-sided hemiparesis. Looking over his orders, I do not see any thing to change at this point. cc: Jay Oliveira MD
--- NOTE | 2016-06-04 15:54 | DISCHARGE SUMMARY ---
ADMISSION DATE: 06/02/2016 DISCHARGE DATE: 06/04/2016 HOSPITAL COURSE: This 89-year-old with history of cerebrovascular accident with left-sided paralysis, hypertension, dementia, chronic obstructive pulmonary disease who is basically bedbound, was brought to the emergency room department becoming lethargic and not responding, not eating and drinking. He was evaluated in the emergency room and felt to be moderately dehydrated. Given some IV fluids, and he did perk up. He did eat a little bit. Past medical history includes asthma, COPD, CVA with left-sided hemiparesis, hypertension, dementia. He has underlying dementia, and he is losing his appetite. He was able to eat a little bit with some encouragement but prognosis is poor. They do not want to place a PEG tube, and they want to keep him comfortable and would like to set him up for hospice. I think this is appropriate. We will, hopefully, discharge him to the hospital at home, take him off of his breathing treatments. He has Cardizem CD 120 mg a day, Aricept 5 mg a day, Seroquel 25 mg at bedtime. I think that we can stop his antibiotic. There was a small infiltrate in the left lung, so I may keep his Levaquin going for another 5 days. cc: Jay Oliveira MD
--- NOTE | 2016-06-04 16:47 | PALLIATIVE CARE CONSULTATION ---
DATE: 06/04/2016 REQUESTING PHYSICIAN: Dr. Oliveira. REASON FOR CONSULTATION: Goals of care. HISTORY OF PRESENT ILLNESS: This is an 89-year-old male with a past medical history of CVA with left-sided paresis, dementia, hypertension and COPD. He was most recently admitted on 06/02/2016 after his family found him minimally responsive at home. It is also reported that he had not been eating and drinking for 4 or 5 days prior to this admission. Workup in the ED revealed the possible infiltrate to the left lung shown on x-ray. CT pulmonary angiogram performed on 06/02/2016 also revealed extensive bronchitis with pneumonia and mucus plugging to the left upper and lower lobes. Mr. Pitt is bedbound. Per chart review, it appears that he has had a 60 pounds weight loss within the last 12 months. Family, his and [id number] are at the bedside and state that over the last 6 months he has been sleeping more and eating less. They state that his confusion has also worsened and he has periods of agitation. Currently Mr. Pitt is lying in the hospital bed. He greets me appropriately as I walk in. He is being fed by his and appears to be tolerating a soft diet well. He is having periods of confusion but denies pain and shortness of breath. He does not have any nonverbal signs and symptoms of discomfort. The palliative care team has been consulted to assist with goals of care. REVIEW OF SYSTEMS: Difficult to obtain due to periods of confusion. PAST MEDICAL HISTORY: 1. CVA with left-sided paresis. 2. COPD. 3. Dementia. 4. Hypertension. PAST SURGICAL HISTORY: 1. Heart valve surgery. 2. Hernia repair. SOCIAL HISTORY: Past tobacco use as well as alcohol use. He lives between his [id number]'s home and his 's home depending on his 's health and her ability to care for him. FAMILY HISTORY: None pertinent. PHYSICAL EXAM: General: This is an 89-year-old cachectic male. He does not appear to be in any acute distress. HEENT: Atraumatic, normocephalic. Neck: Trachea is midline. Cardiovascular: Regular rate and rhythm. Pulmonary: Lung sounds are diminished. Respirations are nonlabored. Abdomen: Soft. Extremities: Cachectic. Pulses are palpable. No edema noted. IMPRESSION: This is a 89-year-old male with a past medical history as listed above in the HPI. I met with the patient, his and [id number] to discuss goals of care. We discussed Mr. Pitt's chronic illnesses and decline that they have seen over the last 6 months especially within the last 2 months. The family has decided to make Mr. Pitt a DNR level 1. We discussed Mr. Pitt's prognosis and the family has also decided to take Mr. Pitt home with home hospice services. A DNR level 1 order will be placed as well as a hospice consult order. As previously mentioned, Mr. Pitt does not show any signs and symptoms of discomfort. It appears that Mr. Pitt's palliative performance scale is 30%. The palliative care team will continue to follow. Thank you for this consultation. Dictated by ALEXANDR Rivas for Talib Chery MD cc: ALEXANDR Rivas MD [facility]
[2016-06-04] MEDS: LEVAQUIN 500 MG/D5W 500 MG/100 ML IVPB IV SCH (22:44)
[2016-06-04] MEDS: SEROQUEL PO SCH (22:44)
[2016-06-05] MEDS: DUONEB (A & A) INH SCH ×4 (03:29→20:59)
[2016-06-05] MEDS: MUCOMYST 20% INH SCH ×2 (10:05→20:58)
[2016-06-05] MEDS: ARICEPT PO SCH ×2 (11:19→11:25)
[2016-06-05] MEDS: ROCEPHIN 1 GM/NS 1 GM/50 ML IVPB IV SCH (11:19)
[2016-06-05] MEDS: CARDIZEM CD PO SCH ×2 (11:20→11:25)
--- NOTE | 2016-06-05 12:01 | PROGRESS NOTE ---
DATE: 06/05/2016 SUBJECTIVE: Mr. Pitt is sleeping at the present time. He is comfortable. Family wants to take him home with hospice. I do not have any change in orders. PHYSICAL EXAMINATION: Vital Signs: Afebrile. Temperature 98.8 degrees, pulse 84, respirations 14, blood pressure 132/57. Lungs: Clear in all lung whelan. Cardiovascular: Regular rhythm and rate, without murmur or S3. Abdomen: Soft. Skin: Warm and dry. Genitourinary: He has a Yusuf catheter in place. Urine output is over 4 L. LABORATORY: I have not checked any more recent laboratory. ASSESSMENT AND PLAN: Underlying dementia, end-stage. Not eating very well at all. Prone to dehydration. Family wants to take him home. They do not want to place a PEG tube, and they want to keep him comfortable, so he is ready go when hospice is ready. Discharge summary done. cc: Jay Oliveira MD
[2016-06-05] MEDS: LEVAQUIN 500 MG/D5W 500 MG/100 ML IVPB IV SCH (21:11)
[2016-06-05] MEDS: SEROQUEL PO SCH (21:11)
[2016-06-06] MEDS: DUONEB (A & A) INH SCH ×4 (03:53→22:20)
[2016-06-06] MEDS: MUCOMYST 20% INH SCH ×2 (07:52→22:20)
[2016-06-06] MEDS: ARICEPT PO SCH (10:13)
[2016-06-06] MEDS: CARDIZEM CD PO SCH (10:13)
[2016-06-06] MEDS: ROCEPHIN 1 GM/NS 1 GM/50 ML IVPB IV SCH (10:13)
--- NOTE | 2016-06-06 15:00 | PROGRESS NOTE ---
DATE: 06/06/2016 SUBJECTIVE: He is up, sitting in a chair, eating some lunch. He is responsive and appears good. No distress. OBJECTIVE: Vital signs: Temp 97.4 degrees, pulse 89, respirations 17, blood pressure 154/62. HEENT: Pupils are equal, round. Lungs: Clear in all lung whelan. Cardiovascular: Regular rhythm and rate without murmur or S3. Abdomen: Soft. Skin: Warm and dry. Intake and output: Urine output has been over a liter in the last 24 hours. LABORATORY: Chemistries reviewed from the . ASSESSMENT AND PLAN: Underlying dementia, end-stage. Doing a little better. Some days are better than others. Yesterday he was more lethargic. Today he is awake. They do not want to pursue PEG tube or tube feeding. Would like to keep him comfortable and let him go home with hospice. Will see if we can get that set up. I do not see any orders to change at this point. I am going to keep him on his Levaquin another day or 2. Probably repeat his chest x-ray again in the morning and check some lab work. cc: Jay Oliveira MD
[2016-06-06 15:12] LABS: AGAP 11; BUN 12 mg/dL (8-22); CALCIUM 8.9 mg/dL (8.8-10.2); CHLORIDE 101 mmol/L (98-107); COSMO 281; POTASSIUM 4.5 mmol/L (3.5-5.1); SODIUM 140 mmol/L (136-145); TCO2 28 mmol/L (25-35)
[2016-06-06] MEDS: SEROQUEL PO SCH (20:38)
[2016-06-06] MEDS: LEVAQUIN 500 MG/D5W 500 MG/100 ML IVPB IV SCH (20:38)
[2016-06-07] MEDS: DUONEB (A & A) INH SCH ×3 (03:55→15:31)
--- NOTE | 2016-06-07 06:31 | Diag Imaging Result Document ---
PROCEDURE NAME: CHEST-PORTABLE - 06/07/2016 PORTABLE CHEST: COMPARISON: Compare to 06/04/2016. FINDINGS: Sternal wires and surgical clips are present. The heart is not enlarged. There is a small left pleural effusion with basilar atelectasis. The right lung is well expanded and clear. There are several old right rib fractures. IMPRESSION: Small left pleural effusion with basilar atelectasis. There could be an underlying infiltrate as well.
[2016-06-07] MEDS: CARDIZEM CD PO SCH (09:22)
[2016-06-07] MEDS: ARICEPT PO SCH (09:22)
[2016-06-07] MEDS: ROCEPHIN 1 GM/NS 1 GM/50 ML IVPB IV SCH (09:22)
--- NOTE | 2016-06-07 09:47 | ECHO REPORT ---
ORDER DATE: 06/04/2016 INDICATION FOR THE STUDY: Asthma, COPD, history of CVA with left-sided paresis. FINDINGS: 1. This is an extremely difficult study with limited views available. There were very limited parasternal views also. Relatively poor quality Doppler and 2 dimensional images were noted. 2. Right heart has overall difficult visualization but on the whole, the right atrium and right ventricle are likely normal in size with normal RV systolic function. There does appear to be some mild tricuspid regurgitation. 3. No significant pulmonic insufficiency on limited views of the pulmonic valve. 4. The left atrium appears to be mildly enlarged at 4.9 cm. 5. No mitral valve prolapse. I do not see any significant mitral regurgitation identified. 6. The left ventricle appears to be likely normal in size with no evidence of left ventricular hypertrophy but again very poor 2 dimensional imaging of the left ventricle. Overall, the LV systolic function is likely normal with an EF greater than 55%. I do not see any clear evidence of segmental wall motion abnormalities but this study is of insufficient quality to rule that out. 7. There does not appear to be any significant stenosis or insufficiency across the aorta or aortic valve. There is very poor 2 dimensional imaging of the valve itself. 8. On some images, the aorta appears to be somewhat enlarged at the root with a dimension of 4 cm. 9. No pericardial effusion seen. cc: MD Zari Lyon CRNP
[2016-06-07] MEDS: MUCOMYST 20% INH SCH (10:01)
--- NOTE | 2016-06-07 14:16 | DISCHARGE SUMMARY ---
ADMISSION DATE: 06/02/2016 DISCHARGE DATE: 06/07/2016 HOSPITAL COURSE: 89-year-old with history of CVA, left-sided hemiparesis, hypertension, dementia, COPD, basically bed bound, brought in by the emergency department the family's, he became lethargic and was not responding well, evaluated in the emergency room, seemed to be dehydrated, given some fluids, he did seem to perk up some. I do suspect he has had a new maybe extension of his CVA. PAST MEDICAL HISTORY: Includes asthma, COPD, CVA, left-sided paresis, hypertension, dementia. Family does not want to place a feeding tube or do anything aggressive. They understand his dementia is progressing, his appetite is poor and would like to take him home with hospice care. Plan to discharge him on 06/07/2016. DISCHARGE MEDICATIONS: He can continue to have the duo nebs if necessary, Cardizem CD 120 mg a day, Aricept 5 mg a day. Will stop his Levaquin, Seroquel 25 mg daily. cc: Jay Oliveira MD
[2016-06-07 14:48] VITALS: BP 138/49
--- NOTE | 2016-06-07 22:14 | PALLIATIVE CARE PROGRESS NOTE ---
DATE: 06/07/2016 SUBJECTIVE: Mr. Pitt is lying in bed. He does not appear to be in any acute distress. OBJECTIVE: General: This is an 89-year-old cachectic male who does not appear to be in any acute distress. HEENT: Atraumatic, normocephalic. Cardiovascular: Regular rate and rhythm. Pulmonary: Lung sounds are diminished. Respirations are nonlabored. Abdomen: Soft. Extremities: Pulses are palpable. ASSESSMENT AND PLAN: It is reported that Mr. Pitt is discharging home with hospice services today. There is no family at bedside currently. Mr. Pitt does not appear to be in any acute distress. He is a Do Not Resuscitate level 1. Palliative performance scale appears to be 30%. The Palliative Care Team will continue to follow. Dictated by ALEXANDR Rivas for Talib Chery MD cc: ALEXANDR Rivas MD
== END 2016-06-07 18:57 | disposition hospice, home (50) ==
LOC: ED 23:44 → SUATTDRO 06-02 05:56 → EDIPHOLD 06-02 05:56 → 3N 06-02 14:20
PROVIDERS: ATTEND Emergency Medicine